=== PATIENT | male | born 1945 | race Caucasian/White ===

== ENCOUNTER 2023-09-10 04:08 | Inpatient (IN) | payer MEDICARE, SELFPAY ==
[2023-09-09 22:32] VITALS: BP 174/104
[2023-09-09 22:52] LABS: % Basophils 0.4 % (0-2); % Eosinophils 0.5 % (0-6); % Immature Granulocytes 0.8 % (0-0.5); % Lymphocytes 12.9 % (20.5-51.1); % Monocytes 7.3 % (1.7-9.3); % Neutrophils 78.1 % (42.2-75.2); Absolute Basophils 0.1 10^3/uL (0-0.2); Absolute Eosinophils 0.1 10^3/uL (0-0.7); Absolute Immature Granulocytes 0.1 10^3/uL (0-0.05); Absolute Lymphocytes 1.9 10^3/uL (1.2-3.4); Absolute Monocytes 1.1 10^3/uL (0.1-0.6); Absolute Neutrophils 11.4 10^3/uL (1.4-6.5); Hematocrit 27.2 % (39.0-52.0); Hemoglobin 8.9 g/dL (13.0-18.0); Mean Corp Hgb Conc. 32.7 g/dL (33.0-37.0); Mean Corpuscular Volume 67.3 fL (80.0-94.0); Nucleated Red Blood Cells % 0 % (-); Red Blood Cell Count 4.04 10^6/uL (4.70-6.10); Red Cell Dist. Width 18.5 % (11.5-14.5); White Blood Cell Count 14.6 10^3/uL (4.8-10.8)
[2023-09-09 23:05] LABS: Mean Platelet Volume 10.8 fL (7.4-10.4); Platelet Count 280 10^3/uL (130-400)
[2023-09-09 23:10] LABS: ALT (SGPT) 15 U/L (0-50); AST (SGOT) 25 U/L (17-59); Albumin 3.9 g/dl (3.5-5.0); Alkaline Phosphatase 90 U/L (38-126); Blood Urea Nitrogen 23 mg/dl (9-20); Calcium 8.8 mg/dl (8.4-10.2); Carbon Dioxide 24 mmol/L (22-30); Chloride 108 mmol/L (98-107); Glucose 108 mg/dl (70-99); Potassium 4.6 mmol/L (3.5-5.1); Sodium 136 mmol/L (135-145); Total Bilirubin 0.6 mg/dl (0.2-1.3); Total Protein 6.8 g/dl (6.3-8.2); eGFR > 60.00
[2023-09-09 23:13] LABS: NT-proBNP 8630 pg/ml; Troponin I 0.014 ng/ml
[2023-09-09 23:34] VITALS: BP 141/108
[2023-09-09 23:35] VITALS: BMI 36.6
[2023-09-09 23:36] VITALS: BP 141/108
[2023-09-10] VITALS (10 sets, daily range): BP systolic 110–161; BP diastolic 60–104; BMI 35.2
--- NOTE | 2023-09-10 01:54 | ED.GENMED ---
History of Present Illness
General
Chief Complaint: Breathing Problem
Source: patient and spouse
Exam Limitations: none
Time Seen by Provider: 09/09/23 23:36
Nursing documentation reviewed up to this point in time: agreed with
Travel History
Have you had any contact with someone who has COVID-19?: No
Do you have any symptoms of coronavirus? Fever > 100 degrees, chills, cough, shortness of breath, sore throat, loss of taste or smell, muscle aches, or headache?: No
History of Present Illness
History of Present Illness:
Patient presents to ED secondary to increasing shortness of breath over the past 2 days, which started at nighttime that woke him up from sleep. Denies chest pain. Denies fever or chills. Denies coughing. Denies nausea, vomiting, or diarrhea.
Denies recent illness. Denies recent change in medications or diet. Denies recent weight gain. Denies leg swelling or pain. Denies back pain. Denies recent travel or surgery. Denies previous history of similar symptoms. Patient states that he
feels presently short of breath, whether he is walking or sitting still. In addition, patient denies any blood with urination or with bowel movements.
Past History
Past History
ED Past Medical History: Other (Colon cancer, peptic ulcer disease, renal calculi)
ED Past Surgical History: Appendectomy, Cholecystectomy and Other (Colon resection, liver resection)
Social History
Tobacco: Non-smoker
Alcohol: None
Drug: None
Review of Systems
Review of Systems
Allergies reviewed?: Yes
Constitutional: Reports no symptoms
EENT: Reports no symptoms
Respiratory: Reports trouble breathing; Denies cough
Cardiac: Reports no symptoms; Denies chest pain
ABD/GI: Reports no symptoms
: Reports no symptoms
Musculoskeletal: Reports no symptoms
Skin: Reports no symptoms
Neurological: Reports no symptoms
Phy Exam
Physical Exam
Physical Exam:
Physical Exam
General: no apparent distress, not acutely ill. afebrile
Head: nc/at. eomi
Neck: supple. no meningeal signs.
Heart: s1/s2 regular rate and rhythm, no murmur. equal radial pulses.
Lungs: no acute respiratory distress. diminished breath sounds bilaterally
Abdomen: normal bowel sounds. not tender.
Neuro: alert and oriented. no focal neurological deficits
Skin: no rash
Psychiatric: well kept. interactive and cooperative
Extremities: LE b/l edema, nonpitting. no calf tenderness.
Scores
Heart Failure Risk
Heart Failure Risk Score: Yes
History of Stroke or TIA: No
History of intubation for respiratory distress: No
Heart rate on ED arrival >/= 110: No
SaO2 <90% on arrival on room air: No
HR >/=110 during 3min walk test (or too ill to perform test): No
ECG has acute ischemic changes: No
Urea >/=12mmol/L (BUN 33.6mg/dL): No
Serum CO2>/=35mmol/L: No
Troponin I or T elevated to FL Level (0.4mg/dL): No
NT-proBNP >/=5,000ng/L (5,000pg/ml): Yes
HF Risk Score: 1
Admission Status: MEDIUM RISK 5.1% Consider observation or discharge to home with homecare & f/u visit to PCP/Pharmacy Operations Coordinator, or SNF for treatment
Course
Orders/Labs/Results
Orders:
Orders
09/09/23 22:31
EKG [Electrocardiogram (*1)] Urgent
Reason for Study: Shortness of Breath
EKG- Treatment ONCE
09/09/23 22:36
CR Chest - 2 Views Urgent
Comment:
Reason For Exam: respiratory distress
09/09/23 22:46
Complete Blood Count/With Diff Urgent
Comprehensive Metabolic Panel Urgent
Ferritin Urgent
Comment: ADDED
Iron Urgent
Comment: ADDED
NT-proBNP Urgent
Total Iron Binding Urgent
Comment: ADDED
Troponin I Urgent
09/10/23 01:53
D-Dimer Urgent
09/10/23 02:26
Furosemide [Lasix] 20 mg IV NOW STA
09/10/23 02:39
COVID-19 Antigen Urgent
Source: Nasal Swab
09/10/23 03:07
Admit/Transfer Patient As Directed
Co-Sign Provider:
Level of Care: Inpatient admission
Assign to:: Telemetry
Physician / Group: dr fulton
Diagnosis: dyspnea/acute HF unknown type
Reason for Telemetry: Acute Heart Failure
Date to Stop Telemetry: 09/13/23
Time to Stop Telemetry: 11:00
Reason for Hospitalization: acute HF unknown type
trace amount heme pos brown stool
symptomatic ANDREZ
Expected length of stay greater than two midnights?: No
ELOS- Estimated Length of Stay in days: 3
I certify the patient meets the requirements for IP care: Yes
09/10/23 03:11
Code Status As Directed
Resuscitation Status: Full Code
09/10/23 03:22
Pantoprazole [Protonix IV] 80 mg IV NOW STA
09/10/23 04:50
Docusate W/Senna [Senokot-S] 1 tablet PO TID PRN
Oxycodone/Acetaminophen [Percocet 5/325] 1 tablet PO TIDPRN PRN
09/10/23 04:50
CARDIOLOGY CONSULT Routine
Consulting Provider: Xavier Mccullough
Was physician already notified: No
Reason for consult: new onset HF
Consult Gastroenterology [GASTROINTESTINAL CONSULT] Routine
Consulting Provider: Eugenia Garcia
Was physician already notified: No
Reason for consult: symptomatic anemia
Consult Notification Routine
Specialty to Notify: Cardiology
Date consulting provider notified: 09/10/23
Time consulting provider notified: 09:28
Notified:: Provider
Comment: TT'd On-Call Physician
Consult Notification Routine
Specialty to Notify: Gastroenterology
Date consulting provider notified: 09/10/23
Time consulting provider notified: 09:29
Notified:: Provider
Comment: TT'd on-call Physician
HF DIETARY CONSULT Routine
HF EDUCATOR CONSULT Routine
Comment:
Activity As Directed
Activity Level: With Assistance
Intake/ Output As Directed
Frequency: Per unit guidelines
Patient Education As Directed
Type: CHF folder
Comment: give on admission. Document in Interdisciplinary Education record
Pneumatic Compression Sleeves As Directed
Type: Knee high
Sleep Apnea Assessment by RN As Directed
Comment:
Physician Instructions:
Vital Signs As Directed
Frequency: Other
Additional Instructions:: Q12 or per unit guidelines if more frequent.
Weight As Directed
Frequency: Daily
Type of Scale: Standing Scale
Comment: Daily morning weight. If unable to stand, use balanced bed scale.
Weight As Directed
Frequency: Once
Type of Scale: Standing Scale
Comment: Upon Admission. If unable to stand, use balanced bed scale.
Pulse Ox/cont/shift [RESP] Routine
Quantity: 1
Special Instructions: Daily pulse oximetry at rest. If greater than 92% at rest also obtain pulse oximetry
while ambulating as tolerated.
DX Deep Vein Thrombosis Video Routine
09/10/23 05:16
Urinalysis Reflex To Culture Routine
Date Specimen was Collected: 09/10/23
Time Specimen was Collected: 05:15
09/10/23 06:00
Echo 2D MMode Color/Doppler IN AM
Reason for Study: heart failure
NPO
Allow oral meds: Yes
Allow clear liquids: Sips of Clears
NPO with Ice Chips: Yes
Pantoprazole 80 mg/100 ml Nss [Protonix] 80 mg in 100 ml IV Q10H
09/10/23 07:07
Type+Screen IN AM
Basic Metabolic Panel IN AM
CBC/With Diff [Complete Blood Count/With Diff] IN AM
09/10/23 08:00
Furosemide [Lasix] 40 mg IV ONCE ONE
Gabapentin [Neurontin] 600 mg PO TID
09/10/23 13:00
H&H Q6H
09/10/23 14:00
Ferric Gluconate [Ferrlecit] 125 mg 0.9% Sodium Chloride 100 ml [Nss] 100 ml IV DAILY@1400
09/10/23 18:00
H&H Q6H
09/11/23 00:00
H&H Q6H
09/11/23 06:00
Basic Metabolic Panel IN AM
09/12/23 06:00
Basic Metabolic Panel IN AM
09/13/23 11:00
DC Protocol for Telemetry ONCE
Abnormal Lab Results
09/09/23 09/10/23
22:46 01:53
WBC 14.6 H 10^3/uL
(4.8-10.8)
RBC 4.04 L 10^6/uL
(4.70-6.10)
Hgb 8.9 L g/dL
(13.0-18.0)
Hct 27.2 L %
(39.0-52.0)
MCV 67.3 L fL
(80.0-94.0)
MCH 22.0 L pg
(27.0-31.0)
MCHC 32.7 L g/dL
(33.0-37.0)
RDW 18.5 H %
(11.5-14.5)
MPV 10.8 H fL
(7.4-10.4)
Abs Immat Gran (auto) 0.1 H 10^3/uL
(0-0.05)
Absolute Neuts (auto) 11.4 H 10^3/uL
(1.4-6.5)
Absolute Monos (auto) 1.1 H 10^3/uL
(0.1-0.6)
Immature Gran % 0.8 H %
(0-0.5)
Neutrophils % 78.1 H %
(42.2-75.2)
Lymphocytes % 12.9 L %
(20.5-51.1)
D-Dimer 0.55 H ug/mlFEU
(0.00-0.50)
Chloride 108 H mmol/L
(98-107)
BUN 23 H mg/dl
(9-20)
Glucose 108 H mg/dl
(70-99)
Iron 21 L ug/dl
(49-181)
% Saturation 5 L %
(20-50)
Ferritin 10.3 L ng/ml
(17.9-464.0)
09/09/23 22:46
09/09/23 22:46
Vital Signs
Initial and Last Documented VS:
Initial Vital Signs
Temp Pulse Resp BP Pulse Ox
98.1 F 94 25 174/104 99
09/09/23 22:32 09/09/23 22:32 09/09/23 22:32 09/09/23 22:32 09/09/23 22:32
Last Documented Vital Signs
Temp Pulse Resp BP Pulse Ox
98.9 F 80 20 135/85 96
09/10/23 11:26 09/10/23 11:38 09/10/23 11:26 09/10/23 11:38 09/10/23 11:26
MDM/Problems Addressed
MDM/Problems Addressed:
History and exam along with blood work and chest x-ray concerning for potential new onset congestive heart failure. Patient will be admitted for further evaluation and treatment, including IV diuresis.
D-dimer noted, when adjusted for age, within normal limits.
*EKG
Interpreted by ED Provider?: Yes
EKG Intrepretation Date: 09/10/23
Heart Rate: 88
Rate: normal
Rhythm: sinus and PVC's
[place]: normal axis
Interval: normal interval
*Critical Care Note
Total Time (30-74mins, 75-104mins- exclusive of procedures): Not Applicable
ED Attending Note
-
Portions of this chart may have been created with voice recognition software.� Occasional wrong word or��sound alike� substitutions may have occurred due to the inherent limitations of voice recognition software.
Discharge Plan
Departure
Patient Disposition: Admit
Date of Disposition: 09/10/23
Time of Disposition: 02:28
Admit to: Telemetry
Presentation/result/management discussed w/ accepting MD/DO: Hospitalist
Discharge Problem:
Dyspnea
Interventions
Interventions:
*Risk Screen - Suicide Last Done: 09/10/23 05:20
*General Assessment Last Done: 09/09/23 22:32
*Neglect/Abuse Screening Last Done: 09/09/23 22:32
ED- Fall Risk Assessment Last Done: 09/09/23 23:39
*ED COVID-19 Vaccine History Last Done: 09/10/23 05:20
*Nursing Disposition Last Done: 09/10/23 04:28
ED- Cardiac Assessment Last Done: 09/09/23 23:39
ED- Pulmonary Assessment Last Done: 09/09/23 23:39
Discharge Date and Time
Discharge Date/Time: 09/10/23 04:42
[2023-09-10 01:57] LABS: Iron 21 ug/dl (49-181)
[2023-09-10 02:06] LABS: Percent Saturation 5 % (20-50); Total Iron Binding Capacity 419 ug/dl (261-462)
[2023-09-10 02:12] LABS: D-Dimer 0.55 ug/mlFEU (0.00-0.50)
[2023-09-10] MEDS: LASIX 20 MG IV (02:38)
[2023-09-10 02:46] LABS: Ferritin 10.3 ng/ml (17.9-464.0)
--- NOTE | 2023-09-10 02:57 | HPS.HSE ---
Family Physician
-
Family Physician: Eli Hillman PA-C
Chief Complaint
-
SoB
History of Present Illness
78M HX Colon CA , PUDz pw shortness of breath over the past 2 days, which started at nighttime that woke him up from sleep. Patient states that he feels presently short of breath, whether he is walking or sitting still.
In addition, patient denies any blood with urination or with bowel movements.
ROS
Denies chest pain.
Denies fever or chills.
Denies coughing.
Denies nausea, vomiting, or diarrhea.
Denies recent illness.
Denies recent weight gain.
Denies leg swelling or pain.
Denies back pain.
Denies recent travel or surgery.
Denies previous history of similar symptoms.
Medical History
Past Medical History
Past Medical History: Reports Other
Additional Past Medical History:
Colon cancer, peptic ulcer disease, renal calculi)
Past Surgical History: Reports Other
Additional Past Surgical History:
Appendectomy, Cholecystectomy and Other (Colon resection, liver resection)
Social History
Tobacco: Non-smoker
Alcohol: None
Drug: None
Family History
Family History: Not pertinent
Allergies / Home Medications
Allergies reflects when Allergies were last updated in [facility].
Home Medications with original date entered in [facility]
Allergy/Medication List:
Allergies
Allergy/AdvReac Type Severity Reaction Status Date / Time
Seasonal Allergy Sneezing, Uncoded 10/17/22 22:03
watery
eyes,
runny nose
Home Medications
gabapentin 300 mg capsule 900 mg PO TID 01/03/08
aspirin 81 mg tablet 81 mg PO DAILY 09/10/23
oxycodone-acetaminophen 10 mg-325 mg tablet 1 tab PO TID PRN breakthrough pain 09/10/23
sennosides 8.6 mg-docusate sodium 50 mg tablet 1 tab-cap PO TID PRN constipation 09/10/23
Review of Systems
-
Constitutional: Reports No Symptoms
EENT: Reports No Symptoms
Respiratory: Reports See HPI
Cardiac: Reports See HPI
Abdomen/GI: Reports No Symptoms
: Reports No Symptoms
Musculoskeletal: Reports No Symptoms
Skin: Reports No Symptoms
Neurological: Reports No Symptoms
Endocrine: Reports No Symptoms
Hematologic/Lymphatic: Reports No Symptoms
Psych: Reports No Symptoms
Physical Exam
Vital Signs
Vital Signs
Temp Pulse Resp BP Pulse Ox
99 F 91 18 155/104 99
09/10/23 02:15 09/10/23 02:12 09/10/23 02:15 09/10/23 02:12 09/10/23 02:12
Physical Exam
General: Other (see below )
Laboratory Results
-
09/09/23 22:46
09/09/23 22:46
Laboratory Results
Total Bilirubin 0.6 mg/dl (0.2-1.3) 09/09/23 22:46
AST 25 U/L (17-59) 09/09/23 22:46
ALT 15 U/L (0-50) 09/09/23 22:46
Alkaline Phosphatase 90 U/L (38-126) 09/09/23 22:46
Troponin I 0.014 ng/ml 09/09/23 22:46
Data Reviewed
-
Diagnostic Radiology: Other (pending report )
Lab Data: Labs Reviewed by me
Old Records: Reviewed
Impression/Plan
-
Reviewed VS: T 99 HR 90 BP 155/105 RR 18 POx 99
PE
Gen: no apparent distress
HEENT: anicteric
Neck: supple
Lungs: no acute respiratory distress. diminished breath sounds bilaterally
Cor: RRR S1 S2
Abdomen: soft abdomen
ANUPAM by ER: questionable trace HoB bown stool
NURSING CENTER TUTOR: AAO3 NFND
MS: no edema
Psych: interactive and cooperative
Data
WCC 14.6
Hgb 8.9 - Last Hgb was 14 in 2015
DD 0.55
Na 136
Cl 108
CO2 24
BUN 23
Cr 1.2
eGFR > 60
BG 108
Very low Ferritin 10.3 c/w Fe Def Anemia
NEG TPNI
proBNP 8600s
Pending Covid Ag
CXR pending final report
EKG
SINUS RHYTHM WITH FREQUENT , AND CONSECUTIVE PREMATURE VENTRICULAR COMPLEXES
POSSIBLE ANTERIOR INFARCT , AGE UNDETERMINED
ABNORMAL ECG
WHEN COMPARED WITH ECG OF 16-JUN-2011 08:32,
PREMATURE VENTRICULAR COMPLEXES ARE NOW PRESENT
Last hospitalist admission: no prior hospitalist admission
ASSESSMENT & PLAN
Progressive dyspnea
Suspect multifactorial origin: acute HF type unknown vs. high output HF due to symptomatic fe def anemia
- IV Lasix 40 x 1 at AM - then await Card evaluation
- daily Wt , IOs
- ECHO
- CBC Card consult
Questionable trace HoB POS brown stool GIB
Associated Fed def anemia
HX Colon CA
HX PUDx
- IV Fe Tx for 5days
- held ASA for now
- NPO except sips and PPI gtt
- H & H q8H
- T & S
- Blood consented and scanned
- GI consult
Leucocytosis - Infective vs. Reactive
- trend WCC
- f/u UA
- f/u Covid Ag
DVT Px: SCD
Code: Full
Ip TLM
[2023-09-10 03:10] LABS: COVID-19 Antigen Negative (Negative)
[2023-09-10] MEDS: PROTONIX IV 80 MG IV (03:48)
[2023-09-10 05:39] LABS: Urine Albumin Negative (Neg - Trace); Urine Bilirubin Negative (Negative); Urine Character Clear (Clear); Urine Color Straw; Urine Glucose Negative (Negative); Urine Ketone Negative (Negative); Urine Leukocyte Negative (Negative); Urine Nitrite Negative (Negative); Urine Occult Blood Negative (Negative); Urine Specific Gravity 1.005 (<1.030); Urine Urobilinogen Negative (Neg - 1+)
[2023-09-10] MEDS: PROTONIX 100 IV (06:00)
--- NOTE | 2023-09-10 06:25 | PTCARENOTE ---
Patient arrived from the ED via stretcher at approximately 0500. Patient ambulated from stretcher to bed x1 assist. Patient AAOx3, RAMONA, and forgetful @ times. VSS as documented. Assessment as documented. Patient oriented to room. Call kay within
reach. Bed in lowest position.
--- NOTE | 2023-09-10 07:56 | W.PN.UPDATE ---
Update Note
Progress Note Update
Patient seen and examined after post midnight admission. He reports that shortness of breath is improving. Denies chest pain.
161/100, 80, 20, 98.8 �F, 97% on room air
NAD, AAOx3, NCAT
RRR, normal S1/S2
CTAB
CN2-12 intact
no LE edema
CXR: Right basilar atelectasis/scarring.
proBNP 8360
Fe 21, ferritin 10.3, % sat 5
Hb 8.9
SOB:
-likely due to Fe def anemia and possibly acute CHF
-received 20mg IV lasix on admission, ordered 40mg IV for now, cards to see
-check echo
-with heme pos stool there is possibly acute blood loss anemia, GI to see, cont protonix gtt, trend Hb
[2023-09-10] MEDS: NEURONTIN 600 MG PO ×3 (08:24→21:36)
[2023-09-10] MEDS: LASIX 40 MG IV (08:28)
[2023-09-10 08:34] LABS: % Basophils 0.1 % (0-2); % Eosinophils 0.6 % (0-6); % Immature Granulocytes 0.5 % (0-0.5); % Lymphocytes 14.6 % (20.5-51.1); % Monocytes 6.7 % (1.7-9.3); % Neutrophils 77.5 % (42.2-75.2); Absolute Eosinophils 0.1 10^3/uL (0-0.7); Absolute Immature Granulocytes 0.1 10^3/uL (0-0.05); Absolute Monocytes 0.9 10^3/uL (0.1-0.6); Absolute Neutrophils 10.8 10^3/uL (1.4-6.5); Hematocrit 28.2 % (39.0-52.0); Hemoglobin 8.7 g/dL (13.0-18.0); Mean Corp Hgb Conc. 30.9 g/dL (33.0-37.0); Mean Corpuscular Hgb 21.9 pg (27.0-31.0); Mean Corpuscular Volume 70.9 fL (80.0-94.0); Mean Platelet Volume 11.3 fL (7.4-10.4); Nucleated Red Blood Cells % 0 % (-); Platelet Count 286 10^3/uL (130-400); Red Blood Cell Count 3.98 10^6/uL (4.70-6.10); Red Cell Dist. Width 18.3 % (11.5-14.5); White Blood Cell Count 13.9 10^3/uL (4.8-10.8)
[2023-09-10 08:46] LABS: Blood Urea Nitrogen 22 mg/dl (9-20); Calcium 8.9 mg/dl (8.4-10.2); Carbon Dioxide 25 mmol/L (22-30); Chloride 103 mmol/L (98-107); Estimated Creatinine Clearance 66 ml/min; Glucose 93 mg/dl (70-99); Sodium 138 mmol/L (135-145); eGFR > 60.00
--- NOTE | 2023-09-10 09:04 | CON.CAR ---
Addendum entered and electronically signed by Xavier Mccullough MD 09/10/23 16:11:
I saw and examined the patient.
The WINCH RUNNER's note was reviewed and I agree with the note.
Comment: 78 y/o pt with prior history of colon Ca s/p� colectomy and chemo approx 16 years ago, neuropathy, and chronic pain who presented with symptoms of PND and orthopnea. Interestingly, no cheng or wt gain. No swelling in the legs or abdominal
distenion. He has a lot of ectocpy on tele. CXR not with overwhelming HF but elevated probnp. Leukocytosis and anemia noted. On exam he has a ?elevated JVP, lungs clear, rrr with extra systolic. He is feeling a bit better with iron and lasix.
Suspect an element of CHF, agree with ongoing diuresis. ZACARIAS of anemia underway. BB started for ectopy as not severely volume overloaded.
will follow
Original Note:
Consultation
Consultation Request
Date/Time Consultation Requested: 09/10/2023 0800
Date/Time Consultation Performed: 09/10/2023 0830
Requesting Provider: Dr. Harrison
Performing Provider: Dr. Mccullough
Reason for Consultation: Possible CHF , SOB
Medical History
-
Chief Complaint: SOB
History of Present Illness:
78 y/o pt with prior history of colon Ca s/p colectomy and chemo approx 16 years ago, neuropathy, and chronic pain who presented with a few days of SOB. he describes primarily when going to bed at night. If he lays flat he needs to sit up b/c of
trouble breathing. He has needed to go out to the recliner to get comfortable. He denies CP, palps, edema, presyncope. He denies CHENG with activity. States normal walking and stairs does not reproduce symptoms. He denies melena or hematuria. BNP was
8630 he was given IV last overnight.
Past Medical History
Past Medical History: Other (colon Ca, neuropathy,PUD, renal calculi)
Past Surgical History: Appendectomy, Cholecystectomy and Other (Colon resection, liver resection)
Social History
Tobacco: Non-Smoker
Alcohol: Occasional
Personal:
Living: With Family
Employment: Retired
Family History
Family History: Reviewed & Not Pertinent
Allergies / Home Medications
Allergy/AdvReac Type Severity Reaction Status Date / Time
Seasonal Allergy Sneezing, Uncoded 10/17/22 22:03
watery
eyes,
runny nose
Medication Instructions Recorded Confirmed Type
gabapentin 300 mg capsule 900 mg PO TID 01/03/08 09/10/23 History
aspirin 81 mg tablet 81 mg PO DAILY 09/10/23 09/10/23 History
oxycodone-acetaminophen 10 mg-325 1 tab PO TID PRN breakthrough pain 09/10/23 09/10/23 History
mg tablet
sennosides 8.6 mg-docusate sodium 1 tab-cap PO TID PRN constipation 09/10/23 09/10/23 History
50 mg tablet
Review of Systems
-
Constitutional: No Symptoms
EENT: No Symptoms
Respiratory: Trouble Breathing
Cardiac: No Symptoms
Abdomen/GI: Constipated
Musculoskeletal: Other (neuropathy LE )
Neurological: No Symptoms
Physical Exam
Vital Signs
Temp Pulse Resp BP Pulse Ox
98.9 F 88 18 129/76 97
09/10/23 07:46 09/10/23 08:28 09/10/23 07:46 09/10/23 08:28 09/10/23 07:46
Lab Results
09/10/23 07:07
Troponin I 0.014 ng/ml 09/09/23 22:46
[id number] Pept 8630 pg/ml 09/09/23 22:46
Physical Exam
General: Well Developed, Well Nourished and No Apparent Distress
HEENT: Normocephalic and Moist Mucous Membranes
Respiratory: Clear
Cardiac: S1/S2 and Regular Rhythm (PVC's )
Breast: Deferred by me
GI: Soft, Non Tender and Normal Bowel Sounds
Rectal: Deferred by Provider
Musculoskeletal: No Clubbing, No Cyanosis and No Edema
Skin: Warm and Dry
Neuro: AO x 3
Psych: Calm
Impression / Plan
-
SOB:
-multifactorial- notes to have anemia on admit hgb 8.9
-BNP elevated 8630
-frequent PVC's on tele and EKG
Anemia:
-IV PPI
-follow up labs pending
-GI consulted
-asa held
Elevated BNP:
-IV lasix given
-CXR no significant effusions
-symptoms concerning for CHF
-update echo, monitor response to lasix
PVC's:
-frequent ectopy
-check Mg
-given elevated BP and ectopy start metoprolol
-check echo
Elevated BP:
-not know to have HTN per report- BP's high here
-start metoprolol with ectopy.
Data Reviewed
-
EKG: Tracing Personally Visualized and interpreted (NSR PVC's , couplets , 88 bpm. )
Radiology: Report Reviewed by me (CXR 09/09/23 R basilar atelectasis)
Medical Tests (Nuc Med, Echo etc): Report Reviewed by me (Lexiscan stress 2017 EF 40, no reversible defects, poss, prior inferior infarct) and Other (Echo 2017: EF 50-55, mild dilated LA, top nl aortic root 3.7, Asc Ao 3.8cm )
Labs: Labs Reviewed by me, Discussed with Physician, Discussed with Patient and Discussed with Family
Old Records: Reviewed
Critical Care Time (in minutes): OP PCP note 08/04/23, OP cardiology tests , notes 2017
[2023-09-10 09:47] LABS: Magnesium 2.1 mg/dl (1.6-2.3)
[2023-09-10] MEDS: LOPRESSOR 25 MG PO ×2 (11:38→19:51)
--- NOTE | 2023-09-10 12:16 | CON.GI ---
Addendum entered and electronically signed by Eugenia Garcia MD 09/10/23 15:01:
I saw and examined the patient.
The DOCUMENTATION IMPROVEMENT SPECIALIST or PA's note was reviewed and I agree with the note.
Comment: 78-year-old male past medical history of colon cancer status postresection and chemotherapy in 2005, Schatzki's ring, ulcer per patient although I did not see on prior endoscopic reports presenting with shortness of breath. This been going
on for 2 days. Denies any GI bleeding. Does have intermittent dysphagia once a week. Also has constipation which he attributes to his opioid use. Found on blood work to have hemoglobin 8.9 and iron studies consistent with iron deficiency anemia
and elevated BNP. Brown stool.
Most likely shortness of breath is multifactorial with likely heart failure, anemia.
Recommendations:
- cardiac work up
- OK to continue ASA 81 mg GI POV
- Miralax daily for constipation
- PPI BID
- IV Fe
- Will need eventual egd/cscope r/a/b discussed with pt and family at bedside, agreeable, timing pending clinical course inpatient vs outpatient
Original Note:
Consultation
-
Date/Time Consultation Requested: 09/10/23
Date/Time Consultation Performed: 09/10/23 @12:15
Requesting Provider: QUINTEN Walls
Performing Provider: QUINTEN Workman; Dr. Anni Garcia
Reason for Consultation: heme+stool, anemia
Medical History
Chief Complaint / HPI
Chief Complaint: shortness of breath
History of Present Illness:
The patient is a 78-year-old male with past medical history significant for colon cancer status post colon and liver resection and chemotherapy in 2005, peptic ulcer disease, kidney stones, chronic kidney disease stage III, GERD, anxiety, chronic
pain on narcotic, CAD, who presented to the emergency room with complaints of shortness of breath. We are being asked to evaluate for heme positive stool and anemia. The patient reports having several days of shortness of breath prior to
admission. He notes that even at rest he was experiencing dyspnea along with waking from sleep feeling as though he could not catch his breath. He denies any chest pain, lightheadedness, dizziness, or syncope. He denies any lower extremity edema
or swelling elsewhere. He denies any signs of bleeding such as melena, hematochezia, or hematemesis. He does note some mild abdominal discomfort intermittently in the middle of his abdomen but is unclear what triggers this. He notes he does take
Prevacid as needed for reflux but denies any significant reflux symptoms. He does have a history of dysphagia requiring esophageal dilation secondary to Schatzki ring in the past which was done most recently in [address] Ruvalcaba. He reports
infrequent episodes of dysphagia as long as he watches what he eats. He does also admit to intermittent constipation in which he take stool softeners for, likely secondary to chronic narcotic use for chronic back pain. He otherwise denies any
fevers, chills, unintentional weight loss, odynophagia, nausea, or vomiting. He denies a prior history of anemia. He denies any use of blood thinners aside from 81 mg of aspirin. He denies any significant NSAID use. He reports rare alcohol use.
Last colonoscopy was done in 2019 with removal of multiple polyps and patent end-to-end colocolonic anastomosis. Prior EGD as noted above, with also EGD in 2020 showing H. pylori. He admits to family history of colon cancer of his mother and
numerous second-degree relatives. Routine labs on admission showed WBC 14.6, hemoglobin 8.9, MCV 67.3, platelets 280,000, sodium 136, potassium 4.6, BUN 23, creatinine 1.2, serum iron 21, TIBC 419, iron saturation 5, ferritin 10.3, proBNP 8630,
troponin negative x 1. Chest x-ray was done which showed right basilar atelectasis versus scarring with no significant or convincing infiltrates. UA and COVID swab negative. He was started on IV Lasix pending cardiology evaluation. Per EMR,
digital rectal exam by ER physician showed brown possibly trace heme positive stool. EKG shows sinus rhythm with frequent PVCs and possible anterior infarct. IV iron was ordered and he was made n.p.o., placed on PPI drip, and admitted for
evaluation by GI.
Past Medical History
Past Medical History: CAD, Cancer (Colon cancer status post colon and liver resection with chemotherapy in 2005), GERD, HTN and Other (Chronic pain on narcotics, anxiety, peptic ulcer disease, kidney stones, CKD stage III)
Past Surgical History: Appendectomy, Bowel Resection, Cholecystectomy and Other (Liver resection, oral surgery)
Social History
Tobacco: Non-Smoker
Alcohol: Other (Rare)
Drug: None
Personal:
Living: With Family
Family History
Family History: Cancer (mother-colon cancer)
Allergies / Home Medications
Allergy/AdvReac Type Severity Reaction Status Date / Time
Seasonal Allergy Sneezing, Uncoded 10/17/22 22:03
watery
eyes,
runny nose
Medication Instructions Recorded
gabapentin 300 mg capsule 900 mg PO TID 01/03/08
aspirin 81 mg tablet 81 mg PO DAILY 09/10/23
oxycodone-acetaminophen 10 mg-325 1 tab PO TID PRN breakthrough pain 09/10/23
mg tablet
sennosides 8.6 mg-docusate sodium 1 tab-cap PO TID PRN constipation 09/10/23
50 mg tablet
Review of Systems
-
History Source: Patient
Constitutional: Reports Sleep Disturbance
EENT: Reports No Symptoms
Respiratory: Reports Trouble Breathing
Cardiac: Reports No Symptoms
Abdomen/GI: Reports Abdominal Pain (Intermittent) and Constipated (Intermittent)
: Reports No Symptoms
Musculoskeletal: Reports No Symptoms
Skin: Reports No Symptoms
Neurological: Reports No Symptoms
Vital Signs
Temp Pulse Resp BP Pulse Ox
98.9 F 80 20 135/85 96
09/10/23 11:26 09/10/23 11:38 09/10/23 11:26 09/10/23 11:38 09/10/23 11:26
Physical Exam
Exam
General: Well Developed, Well Nourished and No Apparent Distress
HEENT: Normocephalic, Anicteric and Atraumatic
Respiratory: Clear (Overall diminished with no signs of wheezing) and Non Labored Respirations
Cardiac: S1/S2 and Regular Rhythm
GI: Soft, Non Tender, Non Distended and Normal Bowel Sounds
Rectal: Other (Brown heme positive per ER record)
Musculoskeletal: No Edema
Skin: Warm and Dry
Neuro: Awake and Alert
Psych: Calm
Results
WBC 13.9 10^3/uL (4.8-10.8) H 09/10/23 07:07
Hgb 8.7 g/dL (13.0-18.0) L 09/10/23 07:07
Hct 28.2 % (39.0-52.0) L 09/10/23 07:07
MCV 70.9 fL (80.0-94.0) L 09/10/23 07:07
Plt Count 286 10^3/uL (130-400) 09/10/23 07:07
Absolute Neuts (auto) 10.8 10^3/uL (1.4-6.5) H 09/10/23 07:07
Sodium 138 mmol/L (135-145) 09/10/23 07:07
Potassium 4.0 mmol/L (3.5-5.1) 09/10/23 07:07
Chloride 103 mmol/L (98-107) 09/10/23 07:07
Carbon Dioxide 25 mmol/L (22-30) 09/10/23 07:07
BUN 22 mg/dl (9-20) H 09/10/23 07:07
Creatinine 1.2 mg/dL (0.7-1.3) 09/10/23 07:07
Calcium 8.9 mg/dl (8.4-10.2) 09/10/23 07:07
Total Bilirubin 0.6 mg/dl (0.2-1.3) 09/09/23 22:46
AST 25 U/L (17-59) 09/09/23 22:46
ALT 15 U/L (0-50) 09/09/23 22:46
Alkaline Phosphatase 90 U/L (38-126) 09/09/23 22:46
Prior GI Procedures:
12/10/2021 EGD, Dr. Ruvalcaba: Normal mucosa in the esophagus but torturous. Low-grade of narrowing and mild Schatzki ring dilated with 20 mm balloon. 4 cm hiatal hernia. Mild antral gastritis. Normal examined duodenum. Biopsies negative.
05/07/2020 colonoscopy, Dr. Ruvalcaba: Anal stricture found on. No exam. two 4-6mm polyps in the sigmoid colon removed with hot snare, one 8 mm polyp in the descending colon removed with hot snare, 110 mm polyp in the ascending colon removed with
piecemeal, diffuse 6 to 8 mm polyps in the transverse colon removed with hot snare, one 6 mm polyp in the descending colon biopsied. Melanosis in the colon. Patent end-to-end colocolonic anastomosis characterized by healthy-appearing mucosa.
Normal portion of the ileum examined. Polypectomies showing adenomatous polyps throughout the colon.
Assessment / Plan
-
The patient is a 78-year-old male with past medical history significant for colon cancer status post colon and liver resection and chemotherapy in 2005, peptic ulcer disease, kidney stones, chronic kidney disease stage III, GERD, anxiety, chronic
pain on narcotic, CAD, who presented to the emergency room with complaints of shortness of breath. We are being asked to evaluate for heme positive stool and anemia. He presented with several days of shortness of breath, awakening him from sleep.
He was found to have new onset anemia hgb 8.9 and concern for CHF. Currently undergoing cardiac evaluation. He was started on IV iron with evident iron deficiency and his hemoglobin has remained stable with no obvious signs of bleeding. In the ER
with brown but trace heme positive stool. Currently with improvement on IV Lasix
Problem list:
-Shortness of breath, ?CHF with elevated BNP
-Microcytic anemia, heme + brown stool
-Leukocytosis
-Elevated D-dimer
-Iron deficiency
-History of colon cancer status post colon resection and chemotherapy in 1999
-History of peptic ulcer disease and H. pylori in 2020
-Chronic intermittent constipation secondary to opioid
-CKD stage III
Other pertinent medical history:
-Kidney stones
-GERD
-Anxiety
-Chronic pain
-CAD
Recommendations:
-Etiology of anemia possibly secondary to GI source of blood loss with evident iron deficiency and history of colon cancer and peptic ulcer disease versus underlying hematologic disorder versus other.
-He will need eventual EGD and colonoscopy given his history and new onset anemia, inpatient versus outpatient pending clinical course.
-If he has no active signs of bleeding and his hemoglobin remains stable can likely be arranged to be done in the next few weeks outpatient pending his cardiac evaluation here.
-Agree with IV iron
-Monitor H&H and transfuse for hemoglobin less than 7
-Monitor stool output. I advised patient that if he has a bowel movement to notify the nurses so they can examine the color of this
-Continue PPI twice daily and stop PPI drip
-Okay for regular diet today
-Would ensure regular bowel movements with opioid use. Continue stool softeners can add MiraLAX as needed
-Okay to continue aspirin 81 mg daily from a GI standpoint
-Cardiology evaluation noted
-Will follow
-
-
Thank you for consultation and allowing me to participate in the patient's care. Please call the preparation room worker GI physician during the after hours with any questions or concerns.
[2023-09-10 13:05] LABS: Hematocrit 28.8 % (39.0-52.0); Hemoglobin 9.2 g/dL (13.0-18.0)
--- NOTE | 2023-09-10 14:51 | CM ---
CM following re: discharge planning.
Reviewed pt's chart, met with pt. Pt's spouse, son and daughter in law at bedside.
Pt is a 78 year old male, admitted with primary dx of Shortness of breath, ?CHF with elevated BNP. Microcytic anemia, heme + brown stool.
Pt reports he lives with spouse [employer], 2 steps to enter, has 3 supportive sons. 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 No DME, VN or SNF history.
PCP: Eli Hillman.
Pharmacy: [facility].
D/C plan: home with anticipated no nees. Family to transport at discharge.
CM will follow with discharge plan updates as hospitalization progresses
[2023-09-10] MEDS: FERRLECIT 110 MG IV (15:18)
[2023-09-10] MEDS: MIRALAX 17 GRAMS PO (15:19)
[2023-09-10] MEDS: FLUSH (NSS) 1 FLUSH IV (19:52)
[2023-09-10] MEDS: NSS (PRESERVATIVE FREE) 10 ML IV (19:52)
[2023-09-10] MEDS: PROTONIX IV 40 MG IV (19:52)
[2023-09-10 20:06] LABS: Hematocrit 28.3 % (39.0-52.0); Hemoglobin 8.9 g/dL (13.0-18.0)
[2023-09-11] VITALS (7 sets, daily range): BP systolic 116–134; BP diastolic 73–86
[2023-09-11 02:43] LABS: Hematocrit 28.9 % (39.0-52.0)
[2023-09-11 02:56] LABS: Blood Urea Nitrogen 33 mg/dl (9-20); Calcium 8.7 mg/dl (8.4-10.2); Carbon Dioxide 28 mmol/L (22-30); Chloride 105 mmol/L (98-107); Estimated Creatinine Clearance 57 ml/min; Glucose 104 mg/dl (70-99); Potassium 4.6 mmol/L (3.5-5.1); Sodium 136 mmol/L (135-145); eGFR 51.13
[2023-09-11] MEDS: LOPRESSOR 25 MG PO ×2 (08:40→19:51)
[2023-09-11] MEDS: NEURONTIN 600 MG PO ×3 (08:40→21:32)
[2023-09-11] MEDS: ASPIR LOW (ENTERIC COATED) 81 MG PO (08:40)
[2023-09-11] MEDS: PROTONIX IV 40 MG IV ×2 (08:41→19:52)
[2023-09-11] MEDS: MIRALAX 17 GRAMS PO (08:41)
[2023-09-11] MEDS: NSS (PRESERVATIVE FREE) 10 ML IV ×2 (08:41→19:52)
--- NOTE | 2023-09-11 10:33 | W.PN.GI.CBS2 ---
Today's Communication / Plan
-
cards work up, monitor hb
Assessment / Plan
-
�78-year-old male past medical history of colon cancer status postresection and chemotherapy in 2006, Schatzki's ring, ulcer per patient although I did not see on prior endoscopic reports presenting with shortness of breath.� This been going on for
2 days.� Denies any GI bleeding.� Does have intermittent dysphagia once a week.� Also has constipation which he attributes to his opioid use.� Found on blood work to have hemoglobin 8.9 and iron studies consistent with iron deficiency anemia and
elevated BNP.� Brown stool.
Most likely shortness of breath is multifactorial with likely heart failure, anemia.
Recommendations:
- cardiac work up ongoing - getting vignesh mcginnis tuesday
- OK to continue ASA 81 mg GI POV
- Miralax daily for constipation
- PPI BID
- IV Fe
- Will need eventual egd/cscope r/a/b discussed with pt and family at bedside, agreeable, timing pending clinical course inpatient vs outpatient
Subjective
Subjective
Date of Service: September 11, 2023
Brown stool, no complaints
Objective
Data Reviewed
Laboratory Data:
Laboratory Results
09/11/23 02:12
09/11/23 02:12
Laboratory Results
Magnesium 2.1 mg/dl (1.6-2.3) 09/10/23 07:07
Total Bilirubin 0.6 mg/dl (0.2-1.3) 09/09/23 22:46
AST 25 U/L (17-59) 09/09/23 22:46
ALT 15 U/L (0-50) 09/09/23 22:46
Alkaline Phosphatase 90 U/L (38-126) 09/09/23 22:46
Vital Signs and I&O:
Vital Signs
Temp Pulse Resp BP Pulse Ox
97.5 F 77 12 134/86 95
09/11/23 07:36 09/11/23 07:36 09/11/23 07:36 09/11/23 07:36 09/11/23 07:36
I&O
09/10/23 09/11/23 09/12/23
06:59 06:59 06:59
Intake Total 520 / 520
Output Total 800 / 800 120 / 120
Balance -800 / -800 400 / 400
Physical Exam
Physical Exam
GI: Non Distended and Non Tender
--- NOTE | 2023-09-11 14:10 | W.PN.HOSP.TC ---
Today's Communication/Plan
-
hold diuresis
Echo Tuesday
continue PPI and await timing of EGD/Colon per GI
Assessment / Plan
Assessment / Plan
Assessment:
SOB:
- multifactorial from CHF, Anemia
Iron deficiency anemia
- GI following for EGD/scope timing
- IV PPI
- hold ASA
Acute heart failure, unknown type
-s/p Lasix yesterday; d/w Cards and hold off Lasix today due to mild Creatinine increase
-CXR no significant effusions
-symptoms concerning for CHF but also mixed symptoms
-Tuesday
Leukocytosis
- check blood culture
- UA negative
- CXR negative
PVC
-frequent ectopy
-Mg normal
-given elevated BP and ectopy start metoprolol
-Tuesday
Elevated BP
-not know to have HTN per report- BP's high here
-continue metoprolol with ectopy.
DVT ppx: SCDs
Code: Full
Anticipated Discharge: 24 - 48 hours
Subjective/Interval History
-
Date of Service: September 11, 2023
no new complaints
received IV Lasix 40mg yesterday
Objective Data
-
Labs:
Laboratory Results
09/11/23
02:12
Hgb 9.0 L
Hct 28.9 L
Sodium 136
Potassium 4.6
Chloride 105
Carbon Dioxide 28
BUN 33 H
Creatinine 1.4 H
Glucose 104 H
Calcium 8.7
Vital Signs:
Vital Signs
Temp Pulse Resp BP Pulse Ox
97.8 F 65 14 116/74 97
09/11/23 11:41 09/11/23 11:41 09/11/23 11:41 09/11/23 11:41 09/11/23 11:41
I&O
09/10/23 09/11/23 09/12/23
06:59 06:59 06:59
Intake Total 520 / 520
Output Total 800 / 800 120 / 120
Balance -800 / -800 400 / 400
Physical Exam
-
General: No Apparent Distress
HEENT: Normocephalic and Atraumatic
Respiratory: Negative Wheezes
Cardiac: Regular Rhythm and S1/S2
GI: Soft
Genito-urinary: No Costovertebral Tender
Musculoskeletal: No Edema
Neuro: AO x 3
Hematologic / Lymphatic: No Lymphadenopathy
Psych: Calm
Data Reviewed
-
Total Time Spent with Patient (in minutes): 45
Labs: Labs Reviewed by me
--- NOTE | 2023-09-11 14:30 | W.PN.CD ---
Today's Communication / Plan
-
hold further lasix
continue bb
echo tomorrow
ok to proceed to GI evaluation
Impression / Plan
-
SOB:
-multifactorial- notes to have anemia on admit hgb 8.9, leukocytosis?
-BNP elevated 8630
-frequent PVC's on tele and EKG
Anemia:
-IV PPI
-follow up labs pending
-GI consulted, plan for egd/cscope
-he is stable to proceed will get the echo to aid in anesthesia, further cardiac evaluation would occur after GI eval.
-asa held
CHF:
-seems likely to be some component of his presentation
-he has diuresed well and cr did jump
-will hold off on further diuresis
-echo tomorrow
PVC's:
-frequent ectopy
-check Mg
-given elevated BP and ectopy start metoprolol
-check echo
HTN;
-improved with metoprolol and diuresis
holding further diuresis
Subjective:
he is feeling better orthopnea or pnd improved.
Physical Exam
Vital Signs/Labs
Vital Signs
Temp Pulse Resp BP Pulse Ox
97.8 F 65 14 116/74 97
09/11/23 11:41 09/11/23 11:41 09/11/23 11:41 09/11/23 11:41 09/11/23 11:41
09/10/23 09/11/23 09/12/23
06:59 06:59 06:59
Actual Weight 117.753 kg 116.8 kg
09/11/23 02:12
09/11/23 02:12
Magnesium 2.1 mg/dl (1.6-2.3) 09/10/23 07:07
09/09/23
22:46
Rwu-D-Bihyvcxxkin Pept 8630
LAB Results
09/09/23
22:46
Troponin I 0.014
Physical Exam
Constitutional: No acute distress
Cardiovascular: Rhythm & rate is regular, Pedal edema is absent, JVD pressure is normal and Systolic murmur absent
Respiratory: Respiratory effort normal, Lungs clear to auscul., Wheeze Absent, Crackles Absent and Rhonchi Absent
Neuro/Psych: AO x 3
Data Reviewed
-
Date of Service: September 11, 2023
EKG: Other (Sinus with pvcs)
Medical Tests (PFT, Pathology etc): Discussed with Patient (son and at the bedside, all involved in conversations about care plan echo and gi eval)
[2023-09-11] MEDS: FERRLECIT 110 MG IV (15:03)
[2023-09-11] MEDS: SENOKOT-S 1 TABLET PO (21:34)
[2023-09-12 03:00] VITALS: BP 138/85
[2023-09-12 04:08] VITALS: BMI 35.1
[2023-09-12 06:27] LABS: Hematocrit 28.3 % (39.0-52.0); Mean Corp Hgb Conc. 31.8 g/dL (33.0-37.0); Mean Platelet Volume 10.9 fL (7.4-10.4); Platelet Count 268 10^3/uL (130-400); Red Cell Dist. Width 18.3 % (11.5-14.5); White Blood Cell Count 13.1 10^3/uL (4.8-10.8)
[2023-09-12 07:02] LABS: Blood Urea Nitrogen 43 mg/dl (9-20); Calcium 8.5 mg/dl (8.4-10.2); Carbon Dioxide 24 mmol/L (22-30); Chloride 102 mmol/L (98-107); Estimated Creatinine Clearance 53 ml/min; Glucose 93 mg/dl (70-99); Potassium 4.4 mmol/L (3.5-5.1); Sodium 137 mmol/L (135-145); eGFR 47.06
[2023-09-12] MEDS: PROTONIX IV 40 MG IV (07:51)
[2023-09-12] MEDS: ASPIR LOW (ENTERIC COATED) 81 MG PO (07:51)
[2023-09-12] MEDS: MIRALAX 17 GRAMS PO (07:51)
[2023-09-12] MEDS: NEURONTIN 600 MG PO ×3 (07:51→21:54)
[2023-09-12] MEDS: NSS (PRESERVATIVE FREE) 10 ML IV (07:51)
[2023-09-12] MEDS: LOPRESSOR 25 MG PO ×2 (07:52→20:04)
[2023-09-12] MEDS: SENOKOT-S 1 TABLET PO ×2 (07:55→20:04)
[2023-09-12 08:02] VITALS: BP 141/93
--- NOTE | 2023-09-12 08:18 | W.PN.CD ---
Addendum entered and electronically signed by Haja Castillo MD 09/12/23 12:33:
I saw and examined the patient.
The DRIVEWAY SEALER's note was reviewed and I agree with the note.
Comfortable. Respiratory status is stable.
-Plan for echo to reassess left ventricular function.\\
-Evaluation and treatment of anemia as directed by GI and hospitalist
Original Note:
Today's Communication / Plan
-
continue Lopressor 25mg BID.
check echo today.
Impression / Plan
-
SOB: multifactorial.
- anemia on admit hgb 8.9, leukocytosis.
- BNP elevated 8630, diuresed.
- frequent PVC's on tele and EKG, asymptomatic.
Anemia: acute.
- IV PPI.
- GI consulted, plan for eventual EGD/Scope.
- check echo today, further cardiac evaluation would occur after GI evaluation.
CHF: acute on chronic systolic, EF 40% in 2017.
- improved s/p diuresis, though with elevated creatinine 1.5 today.
- hold off on further diuresis.
- check echo today.
PVC's: frequent.
- asymptomatic.
- now on Lopressor 25mg BID, continue.
- Mag and K are WNL.
- echo today.
HTN: chronic.
- improved with Lopressor and diuresis.
- monitor.
Subjective:
denies palpitations, chest pain or sob.
Physical Exam
Vital Signs/Labs
Vital Signs
Temp Pulse Resp BP Pulse Ox
98.3 F 68 18 141/93 96
09/12/23 08:02 09/12/23 08:02 09/12/23 08:02 09/12/23 08:02 09/12/23 08:02
09/11/23 09/12/23 09/13/23
06:59 06:59 06:59
Actual Weight 116.8 kg 117.299 kg
09/12/23 04:55
09/12/23 04:55
Magnesium 2.1 mg/dl (1.6-2.3) 09/10/23 07:07
09/09/23
22:46
Nnq-H-Biuhfknpyqg Pept 8630
LAB Results
09/09/23
22:46
Troponin I 0.014
Physical Exam
Constitutional: No acute distress
EENT: Anicteric and Moist mucous membranes
Cardiovascular: Rhythm & rate is regular
Respiratory: Respiratory effort normal and Lungs clear to auscul.
GI: Soft, Non tender and Normal bowel sounds
Neuro/Psych: AO x 3
Other: Skin (warm, dry)
Data Reviewed
-
Date of Service: September 12, 2023
Medical Decision Making: External Notes and Reviewed Test Results
EKG: Tracing Personally Visualized and interpreted
X-Ray/CT/US/MRI/NUC/PET: Report Reviewed by me
Labs: Labs Reviewed by me
Old Records: Reviewed
--- NOTE | 2023-09-12 08:22 | W.PN.HOSP.TC ---
Today's Communication/Plan
-
see bold
Assessment / Plan
Assessment / Plan
Gen: NAD, AAOx3.
Eyes: EOMI, PERRLA, no scleral icterus.
Neck: supple.
CV: RRR, +S1/S2, no m/r/g.
Resp: CTAB, no rales, wheezes, or rhonchi.
Abd: +BS, soft, NT, ND
Skin: No rashes. No LE edema
Neuro: CN 2-12 intact, non-focal.
Psych: Normal mood and affect.
SOB:
-multifactorial from CHF and anemia
Iron deficiency anemia:
-GI following for EGD/scope timing
-cont IV PPI
-cont IV Fe
Acute heart failure, unknown type:
-s/p Lasix which was stopped due to J CARLOS
-CXR: Right basilar atelectasis/scarring.
-symptoms concerning for CHF but also mixed symptoms
-Echo today
Leukocytosis:
-suspect reactive
-afebrile, U/A and CXR NEG
PVCs/frequent ectopy:
-Mg normal
-given elevated BP and ectopy, metoprolol started
-Echo today
Elevated BP:
-not known to have HTN per report
-BB started
FULL/SCDs
Anticipated Discharge: 24 - 48 hours
Subjective/Interval History
-
Date of Service: September 12, 2023
Denies chest pain or shortness of breath. Denies melena or hematochezia.
Objective Data
-
Labs:
Laboratory Results
09/12/23
04:55
WBC 13.1 H
Hgb 9.0 L
Hct 28.3 L
Plt Count 268
Sodium 137
Potassium 4.4
Chloride 102
Carbon Dioxide 24
BUN 43 H
Creatinine 1.5 H
Glucose 93
Calcium 8.5
Vital Signs:
Vital Signs
Temp Pulse Resp BP Pulse Ox
98.3 F 68 18 141/93 96
09/12/23 08:02 09/12/23 08:02 09/12/23 08:02 09/12/23 08:02 09/12/23 08:02
I&O
09/11/23 09/12/23 09/13/23
06:59 06:59 06:59
Intake Total 520 / 520 1020 / 1020
Output Total 120 / 120
Balance 400 / 400 1020 / 1020
[2023-09-12 11:03] VITALS: BP 139/83
--- NOTE | 2023-09-12 11:09 | W.PN.GI.CBS2 ---
Addendum entered and electronically signed by Eugenia Garcia MD 09/12/23 15:26:
I saw and examined the patient.
The SHARED SERVICES MANAGER or PA's note was reviewed and I agree with the note.
Comment: 78-year-old male past medical history of colon cancer status postresection and chemotherapy in 2005, Schatzki's ring, ulcer per patient although I did not see on prior endoscopic reports presenting with shortness of breath.� This been going
on for 2 days.� Denies any GI bleeding.� Does have intermittent dysphagia once a week.� Also has constipation which he attributes to his opioid use.� Found on blood work to have hemoglobin 8.9 and iron studies consistent with iron deficiency anemia
and elevated BNP.� Brown stool.
Most likely shortness of breath is multifactorial with likely heart failure, anemia.
Hb has been stable.
Recommendations:
- cardiac work up ongoing - getting vignesh mcginnis tuesday
- OK to continue ASA 81 mg GI POV
- Miralax daily for constipation
- PPI BID
- IV Fe
- Plan for outpatient egd/colon d/w pt and , agreeable
pt set up for appt with Cee 09/16 at 11:30 am, appt card given to pt
GI will sign off d/w Dr. Harrison call with ?s
Original Note:
Today's Communication / Plan
-
OP follow-up this Tuesday to set up EGD/colonoscopy. Continue BID PPI. Will sign off, call with ?s.
Assessment / Plan
-
The pt is a 78-year-old male past medical history of colon cancer status postresection and chemotherapy in 2005, Schatzki's ring, PUD per patient although I did not see on prior endoscopic reports presenting with shortness of breath.� This been
going on for 2 days.� Denies any GI bleeding.� Does have intermittent dysphagia once a week.� Also has constipation which he attributes to his opioid use.� Found on blood work to have hemoglobin 8.9 and iron studies consistent with iron deficiency
anemia and elevated BNP.� Brown stool. Most likely shortness of breath is multifactorial with likely heart failure, anemia.
Problem list:
-Shortness of breath, ?CHF with elevated BNP
-Microcytic anemia, heme + brown stool
-Leukocytosis
-Elevated D-dimer
-Iron deficiency
-History of colon cancer status post colon resection and chemotherapy in 1999
-History of peptic ulcer disease and H. pylori in 2019
-Chronic intermittent constipation secondary to opioid
-CKD stage III
Other pertinent medical history:
-Kidney stones
-GERD
-Anxiety
-Chronic pain
-CAD
Recommendations:
-Etiology of anemia possibly secondary to GI source of blood loss with evident iron deficiency and history of colon cancer and peptic ulcer disease versus underlying hematologic disorder versus other.
-Echo today, pending cardiac eval will need EGD/colonoscopy which can be down outpatient with no signs of bleeding actively and stable hgb.
-OK for ASA 81mg
-Continue MiraLax 1 capful daily and stool softener daily. He will needed extended prep for colonoscopy with hx fair prep and multiple polyps.
-I have arranged for him to see me in the office on Saturday 09/16 @ 11:30 am to arrange EGD/colon in the next few weeks.
-Repeat H/H in 1 week, will give slip at office visit
-Continue PPI BID for now with weekly episodes of dysphagia
-IV Fe given inpatient
-Cardiac clearance prior to EGD/colonoscopy pending Echo.
-No further GI recommendations. Will sign off. Please call back with ?s
Subjective
Subjective
Date of Service: September 12, 2023
The pt was seen and examined at the bedside. He denies any acute complaints. He is pending an Echo today. No signs of bleeding. No BM in 2 days. hgb is stable.
Objective
Data Reviewed
Laboratory Data:
Laboratory Results
09/12/23 04:55
09/12/23 04:55
Laboratory Results
Magnesium 2.1 mg/dl (1.6-2.3) 09/10/23 07:07
Total Bilirubin 0.6 mg/dl (0.2-1.3) 09/09/23 22:46
AST 25 U/L (17-59) 09/09/23 22:46
ALT 15 U/L (0-50) 09/09/23 22:46
Alkaline Phosphatase 90 U/L (38-126) 09/09/23 22:46
Vital Signs and I&O:
Vital Signs
Temp Pulse Resp BP Pulse Ox
98.3 F 68 18 141/93 96
09/12/23 08:02 09/12/23 08:02 09/12/23 08:02 09/12/23 08:02 09/12/23 08:02
I&O
09/11/23 09/12/23 09/13/23
06:59 06:59 06:59
Intake Total 520 / 520 1020 / 1020
Output Total 120 / 120
Balance 400 / 400 1020 / 1020
Physical Exam
Physical Exam
HEENT: Anicteric
Cardiology: S1 and S2 (regular rate/rhythm)
Pulmonary: Clear
GI: Soft, Non Distended and Normal Bowel Sounds
Extremities: No Edema
--- NOTE | 2023-09-12 14:35 | CARDSERVLU ---
Echocardiogram with Lumason completed after protocol screening completed. Allergies verified.
Patent IV site: __rt wirst___
IV site flushed with 0.9% NaCl pre and post administration.
Diluted bolus method utilized to enhance visualization of ventricular palencia.
Total volume given: ___3.0_ mL
Patient tolerated all procedures well without complications.
[2023-09-12] MEDS: FERRLECIT 110 MG IV (14:56)
[2023-09-12] MEDS: XANAX 0.5 MG PO (14:57)
[2023-09-12 15:37] VITALS: BP 142/77
--- NOTE | 2023-09-12 16:36 | CM ---
CHF, Anemia. GI workup as outpatient. Anticipate home with no needs.
[2023-09-12 19:41] VITALS: BP 134/77
[2023-09-12] MEDS: PROTONIX 40 MG PO (20:04)
[2023-09-12 23:27] VITALS: BP 116/76
[2023-09-13 03:15] VITALS: BMI 35.0
[2023-09-13 03:16] VITALS: BP 136/85
[2023-09-13 06:06] LABS: Blood Urea Nitrogen 40 mg/dl (9-20); Calcium 8.8 mg/dl (8.4-10.2); Carbon Dioxide 26 mmol/L (22-30); Chloride 104 mmol/L (98-107); Estimated Creatinine Clearance 61 ml/min; Glucose 97 mg/dl (70-99); Potassium 4.6 mmol/L (3.5-5.1); Sodium 137 mmol/L (135-145); eGFR 55.88
[2023-09-13 07:27] VITALS: BP 136/78
--- NOTE | 2023-09-13 08:10 | W.PN.HOSP.TC ---
Today's Communication/Plan
-
see bold
Assessment / Plan
Assessment / Plan
Gen: remains NAD, AAOx3.
Eyes: EOMI, PERRLA, no scleral icterus.
Neck: supple.
CV: remains RRR, +S1/S2, no m/r/g.
Resp: remains CTAB, no rales, wheezes, or rhonchi.
Abd: +BS, soft, NT, ND
Skin: No rashes. No LE edema
Neuro: CN 2-12 intact, non-focal.
Psych: Normal mood and affect.
Echo: Dilated cardiomyopathy.
�Left and right ventricular dilation with depressed systolic function.
�Left ventricular ejection fraction is 38% by volumetric assessment. Global
�hypokinesis.
�Stage II diastolic dysfunction suggestive of abnormal relaxation and increased
�filling pressures.
�No significant valvular disease.
SOB:
-multifactorial from CHF and anemia
Iron deficiency anemia:
-GI saw in c/s, will have outpt EGD/colon
-cont PPI
-cont IV Fe
Acute heart failure with reduced ejection fraction:
-s/p Lasix which was stopped due to J CARLOS
-CXR: Right basilar atelectasis/scarring.
-symptoms concerning for CHF but also mixed symptoms
-Echo as above, notable for EF 38%, G2DD
-case discussed with Dr. Barnett, stress test tomorrow
-cont Toprol XL
-start Jardiance
-no ACEi/ARB/Entresto due to renal function
Leukocytosis:
-suspect reactive
-afebrile, U/A and CXR NEG
PVCs/frequent ectopy:
-Mg normal
-given elevated BP and ectopy, metoprolol started
-Echo above
Elevated BP:
-not known to have HTN per report
-BB started
FULL/SCDs
Anticipated Discharge: Within 24 hours
Subjective/Interval History
-
Date of Service: September 13, 2023
No new complaints.
Objective Data
-
Labs:
Laboratory Results
09/13/23
04:56
Sodium 137
Potassium 4.6
Chloride 104
Carbon Dioxide 26
BUN 40 H
Creatinine 1.3
Glucose 97
Calcium 8.8
Vital Signs:
Vital Signs
Temp Pulse Resp BP Pulse Ox
98.3 F 66 16 136/78 97
09/13/23 07:27 09/13/23 07:27 09/13/23 07:27 09/13/23 07:27 09/13/23 07:27
I&O
09/12/23 09/13/23 09/14/23
06:59 06:59 06:59
Intake Total 1020 / 1020 720 / 720
Balance 1020 / 1020 720 / 720
[2023-09-13] MEDS: NEURONTIN 600 MG PO ×3 (08:11→20:38)
[2023-09-13] MEDS: LOPRESSOR 25 MG PO (08:11)
[2023-09-13] MEDS: PROTONIX 40 MG PO ×2 (08:11→20:38)
[2023-09-13] MEDS: ASPIR LOW (ENTERIC COATED) 81 MG PO (08:11)
[2023-09-13] MEDS: XANAX 0.5 MG PO (08:12)
[2023-09-13] MEDS: SENOKOT-S 1 TABLET PO ×2 (08:12→20:38)
[2023-09-13] MEDS: MIRALAX 17 GRAMS PO (08:12)
--- NOTE | 2023-09-13 08:46 | W.PN.CD ---
Today's Communication / Plan
-
-Creatinine has normalized with discontinuation of Lasix.
-Patient has instructed to use Lasix on an as-needed basis for weight gain of 3-5 pounds or shortness of breath at home.
-Will obtain a stress test tomorrow for ischemic evaluation; patient states that he did not know that he had CHF in 2017.
-Will make NPO after midnight.
-Will change from metoprolol to tartrate to metoprolol succinate 25 mg BID.
-Will start Jardiance 10 mg daily.
-Further GDMT limited by risk of renal dysfunction.
-GI consulted; plan for eventual EGD/Scope as outpatient.
-CHF education.
Impression / Plan
-
CHF acute on chronic systolic (EF 40% in 2017; currently 35-40%):
-Compensated on examination; Lasix discontinued due to creatinine increased to 1.5.
-Creatinine has normalized with discontinuation of Lasix.
-Patient has instructed to use Lasix on an as-needed basis for weight gain of 3-5 pounds or shortness of breath at home.
-Will obtain a stress test tomorrow for ischemic evaluation; patient states that he did not know that he had CHF in 2017.
-Will make NPO after midnight.
-Will change from metoprolol to tartrate to metoprolol succinate 25 mg BID.
-Will start Jardiance 10 mg daily.
-Further GDMT limited by risk of renal dysfunction.
-CHF education.
PVCs:
-Changing to Toprol-XL as above
-Denies palpitations.
-Stress test as above for ischemic evaluation.
Anemia: acute.
- IV PPI.
- GI consulted; plan for eventual EGD/Scope as outpatient.
HTN: chronic.
-Fairly controlled on current medications.
Subjective:
No major events overnight. Shortness of breath improved.
Physical Exam
Vital Signs/Labs
Vital Signs
Temp Pulse Resp BP Pulse Ox
98.3 F 66 16 136/78 97
09/13/23 07:27 09/13/23 07:27 09/13/23 07:27 09/13/23 07:27 09/13/23 07:27
09/12/23 09/13/23 09/14/23
06:59 06:59 06:59
Actual Weight 117.299 kg 117.027 kg
09/12/23 04:55
09/13/23 04:56
Magnesium 2.1 mg/dl (1.6-2.3) 09/10/23 07:07
09/09/23
22:46
Fdq-[id number]-Mzaxwgwuerh Pept 8630
Physical Exam
Constitutional: No acute distress and Comfortable
EENT: Anicteric
Cardiovascular: Rhythm & rate is regular, Pedal edema is absent, Systolic murmur absent and S1S2 is normal
Respiratory: Respiratory effort normal and Lungs clear to auscul.
GI: Soft
Neuro/Psych: AO x 3
Other: Skin (Warm, dry, intact)
Data Reviewed
-
Date of Service: September 13, 2023
EKG: Tracing Personally Visualized and interpreted (Telemetry: Sinus rhythm, frequent PVCs)
Echo: Tracing Personally Visualized and interpreted ( EF 38%)
Medical Tests (PFT, Pathology etc): Discussed with Physician (Primary Hospitalist) and Discussed with Nurse
Labs: Labs Reviewed by me
[2023-09-13] MEDS: JARDIANCE 10 MG PO (09:26)
--- NOTE | 2023-09-13 09:32 | PN.CDI ---
Addendum entered and electronically signed by Eren Harrison MD 09/13/23 12:20:
Documentation is complete
Original Note:
CDI
- -
CDI:
Physician Documentation Request
Admit Date: 09/10/23 04:08
Dear Doctor Hunter,
Please review the following and provide your response in the progress notes.
Clinical Indicators:
- 09/13 Cardiology 'CHF acute on chronic systolic...EF 40% in 2017; currently 35-40%'
- 'patient states that he did not know that he had CHF in 2017'
- 09/13 PN 'Acute heart failure with reduced ejection fraction'
Please provide further specificity regarding the most likely acuity of CHF you are evaluating, treating or monitoring.
Acute HFrEF
Acute on chronic HFrEF
Other
Use of terms such as suspected, likely, concern for, or probable (associated with a specific diagnosis that is being evaluated, monitored, or treated as if it exists) are acceptable and can be coded in the inpatient setting, when documented at the
time of discharge.
Thank you,
Chele Carrasco RN
CDI Specialist
Please use your independent medical judgment in providing your response.
[2023-09-13 11:00] VITALS: BP 110/65
--- NOTE | 2023-09-13 14:23 | CM ---
EF at 38%, for stress test tomorrow. PT evaluation when medical stability and patient able to participate. Patient for outpatient GI workup. Discharge plan of care TBD. Anticipate home with no needs.
[2023-09-13] MEDS: FERRLECIT 110 MG IV (14:30)
[2023-09-13 14:48] VITALS: BP 130/76
[2023-09-13 20:07] VITALS: BP 139/86
[2023-09-13] MEDS: TOPROL XL 25 MG PO (20:38)
[2023-09-13 23:46] VITALS: BP 121/81
[2023-09-14 03:38] VITALS: BP 136/81
--- NOTE | 2023-09-14 04:16 | DOWNTIME ---
There was a [employer] Faculty Member Downtime on 09/14/2023 from 0111 to 09/14/2023 at 0405. Downtime documentation of patient's care, including medication administrations, has been reconciled in the electronic record per guidelines. Refer to the
patient's paper chart under the miscellaneous tab to see printed paper medication records and downtime forms.
[2023-09-14 04:38] VITALS: BMI 34.9
[2023-09-14 05:26] LABS: Blood Urea Nitrogen 32 mg/dl (9-20); Calcium 8.5 mg/dl (8.4-10.2); Carbon Dioxide 25 mmol/L (22-30); Chloride 107 mmol/L (98-107); Estimated Creatinine Clearance 56 ml/min; Glucose 88 mg/dl (70-99); HDL Cholesterol 43 mg/dl; LDL Cholesterol, Calculated 70 mg/dl; Potassium 4.5 mmol/L (3.5-5.1); Sodium 137 mmol/L (135-145); Total Cholesterol 124 mg/dl (50-199); Triglyceride 59 mg/dl (10-149); Very Low Density Lipoprotein 11 mg/dl (0-30); eGFR 51.13
[2023-09-14 05:53] LABS: TSH 1.78 uIU/ml (0.47-4.68)
[2023-09-14 07:00] VITALS: BP 129/76
[2023-09-14] MEDS: NEURONTIN 600 MG PO (07:57)
[2023-09-14] MEDS: XANAX 0.5 MG PO (07:57)
[2023-09-14] MEDS: ASPIR LOW (ENTERIC COATED) 81 MG PO (07:57)
[2023-09-14] MEDS: PROTONIX 40 MG PO (07:57)
[2023-09-14] MEDS: SENOKOT-S 1 TABLET PO (07:57)
[2023-09-14] MEDS: TOPROL XL 25 MG PO ×2 (07:57→14:14)
[2023-09-14] MEDS: JARDIANCE 10 MG PO (07:57)
--- NOTE | 2023-09-14 07:57 | W.PN.HOSP.TC ---
Today's Communication/Plan
-
d/c
Assessment / Plan
Assessment / Plan
Gen: Continues to remain NAD, AAOx3.
Eyes: EOMI, PERRLA, no scleral icterus.
Neck: supple.
CV: Continues to remain RRR, +S1/S2, no m/r/g.
Resp: Continues to remain in CTAB, no rales, wheezes, or rhonchi.
Abd: +BS, soft, NT, ND
Skin: No rashes. No LE edema
Neuro: CN 2-12 intact, non-focal.
Psych: Normal mood and affect.
Echo: Dilated cardiomyopathy.
�Left and right ventricular dilation with depressed systolic function.
�Left ventricular ejection fraction is 38% by volumetric assessment. Global
�hypokinesis.
�Stage II diastolic dysfunction suggestive of abnormal relaxation and increased
�filling pressures.
�No significant valvular disease.
SOB:
-multifactorial from CHF and anemia
Iron deficiency anemia:
-GI saw in c/s, will have outpt EGD/colon
-cont PPI
-cont IV Fe
Acute heart failure with reduced ejection fraction:
-s/p Lasix which was stopped due to J CARLOS
-CXR: Right basilar atelectasis/scarring.
-symptoms concerning for CHF but also mixed symptoms
-Echo as above, notable for EF 38%, G2DD
-stress test today without stress-induced ischemia
-cont Toprol XL/Jardiance
-no ACEi/ARB/Entresto due to renal function
-On discharge Lasix will be as needed
-Case discussed with Dr. Barnett and the pt is medically cleared for discharge
Leukocytosis:
-suspect reactive
-afebrile, U/A and CXR NEG
PVCs/frequent ectopy:
-Mg normal
-given elevated BP and ectopy, metoprolol started
-Echo above
Elevated BP:
-not known to have HTN per report
-BB started
Patient's updated at bedside.
FULL/SCDs
Medically cleared for discharge. Case management aware.
Total time spent on d/c = 34 min. This included today's physical exam, progress note, review of laboratory and diagnostic data, preparation of discharge documents and prescriptions, and discussions about the pt's hospital course and discharge plan
with the patient and other medical administrative specialist involved in the patient's care.
Anticipated Discharge: Today
Subjective/Interval History
-
Date of Service: September 14, 2023
No new complaints.
Objective Data
-
Labs:
Laboratory Results
09/14/23
04:27
Sodium 137
Potassium 4.5
Chloride 107
Carbon Dioxide 25
BUN 32 H
Creatinine 1.4 H
Glucose 88
Calcium 8.5
Vital Signs:
Vital Signs
Temp Pulse Resp BP Pulse Ox
98.3 F 69 18 136/81 98
09/14/23 03:38 09/14/23 03:38 09/14/23 03:38 09/14/23 03:38 09/14/23 03:38
I&O
09/13/23 09/14/23 09/15/23
06:59 06:59 06:59
Intake Total 720 / 720 960 / 960
Balance 720 / 720 960 / 960
[2023-09-14] MEDS: MIRALAX PO (08:03)
[2023-09-14 08:59] LABS: Glycohemoglobin (HgbA1c) 5.5 % (4.0-5.6)
[2023-09-14] MEDS: LEXISCAN 0.400000000000000022 MG IV (09:55)
--- NOTE | 2023-09-14 10:16 | W.PN.CD ---
Today's Communication / Plan
-
-Stress test today for ischemic evaluation; patient states that he did not know that he had CHF in 2017.
-Changed from metoprolol to tartrate to metoprolol succinate 25 mg BID yesterday.
-Will place on metoprolol succinate 50 mg once daily for better compliance.
-Continue Jardiance 10 mg daily.
-CHF education today.
-Can discharge to home on Lasix 20 mg daily on an as-needed basis for weight gain of 3-5 pounds or shortness of breath at home.
Impression / Plan
-
CHF acute on chronic systolic (EF 40% in 2017; currently 35-40%):
-Compensated on examination; Lasix discontinued due to creatinine increased to 1.5.
-Can discharge to home on Lasix 20 mg daily on an as-needed basis for weight gain of 3-5 pounds or shortness of breath at home.
-Stress test today for ischemic evaluation; patient states that he did not know that he had CHF in 2017.
-Changed from metoprolol to tartrate to metoprolol succinate 25 mg BID yesterday.
-Will place on metoprolol succinate 50 mg once daily for better compliance.
-Continue Jardiance 10 mg daily.
-Further GDMT limited by risk of renal dysfunction.
-CHF education today.
PVCs:
-Continue Toprol-XL.
-Stress test as above for ischemic evaluation.
Anemia: acute.
- IV PPI.
- GI consulted; plan for eventual EGD/Scope as outpatient.
HTN: chronic.
-Fairly controlled on current medications.
Subjective:
No major cardiac events overnight. Intermittent episodes of shortness of breath, but improving overall.
Physical Exam
Vital Signs/Labs
Vital Signs
Temp Pulse Resp BP Pulse Ox
98.2 F 70 18 129/76 99
09/14/23 07:00 09/14/23 07:57 09/14/23 07:00 09/14/23 07:57 09/14/23 07:45
09/13/23 09/14/23 09/15/23
06:59 06:59 06:59
Actual Weight 117.027 kg 116.483 kg
09/12/23 04:55
09/14/23 04:27
Magnesium 2.1 mg/dl (1.6-2.3) 09/10/23 07:07
Triglycerides 59 mg/dl (10-149) 09/14/23 04:27
LDL Cholesterol, Calc 70 mg/dl 09/14/23 04:27
VLDL Cholesterol, Calc 11 mg/dl (0-30) 09/14/23 04:27
HDL Cholesterol 43 mg/dl 09/14/23 04:27
TSH 1.78 uIU/ml (0.47-4.68) 09/14/23 04:27
09/09/23
22:46
Txp-M-Zmsiswztsqh Pept 8630
Physical Exam
Constitutional: No acute distress and Comfortable
EENT: Anicteric
Cardiovascular: Rhythm & rate is regular, Pedal edema is absent, Systolic murmur absent and S1S2 is normal
Respiratory: Respiratory effort normal and Lungs clear to auscul.
GI: Soft
Neuro/Psych: AO x 3
Other: Skin (Warm, dry, intact)
Data Reviewed
-
Date of Service: September 14, 2023
EKG: Tracing Personally Visualized and interpreted (Telemetry: Sinus rhythm, PVCs)
Echo: Report Reviewed by me (EF 38%, no significant valvular disease.)
[2023-09-14] MEDS: AMINOPHYLLINE 75 MG IV (10:17)
--- NOTE | 2023-09-14 10:49 | PTCARENOTE ---
Report called to Tricia on , pt tolerated Lexiscan test well, refer to Cardiac Services Monitoring Record for details. . Patient under camera at present.
[2023-09-14 11:27] VITALS: BP 139/82
--- NOTE | 2023-09-14 13:54 | CM ---
Patient has been medically cleared for discharge to home with no additional skilled needs. will transport home.
--- NOTE | 2023-09-14 13:56 | W.DCSUMMARY ---
Discharge Summary
Discharge Data
Date of Admission: 09/10/23
Date of Discharge: 09/14/23
-
Pending Results: No
Hospital Course
Primary diagnoses:
Shortness of breath due to iron deficiency anemia and acute nonischemic heart failure with reduced ejection fraction
Acute kidney injury on chronic kidney disease stage IIIa likely due to cardiorenal syndrome
Secondary diagnoses:
Premature ventricular contractions/frequent ectopy
Leukocytosis, likely reactive
Elevated blood pressure
Obesity due to excess calories
Consultants:
Gastroenterology
Cardiology
Imaging:
CXR: Right basilar atelectasis/scarring.
Echo: Dilated cardiomyopathy.
�Left and right ventricular dilation with depressed systolic function.
�Left ventricular ejection fraction is 38% by volumetric assessment. Global
�hypokinesis.
�Stage II diastolic dysfunction suggestive of abnormal relaxation and increased
�filling pressures.
�No significant valvular disease.
78-year-old male who presented with chief complaint of shortness of breath as outlined in the H&P done on admission. Hospital course per problem list:
Shortness of breath due to iron deficiency anemia and acute nonischemic heart failure with reduced ejection fraction: Patient shortness of breath was multifactorial as previously stated. He was found to have iron deficiency anemia and seen in
consultation by gastroenterology. Due to his acute cardiac issues EGD and colonoscopy were deferred. He will need these in the outpatient setting and GI is arranged for follow-up. He was placed on proton pump inhibitor. He was given IV iron.
Regarding his acute nonischemic heart failure with reduced ejection fraction, patient had a stress test while hospitalized showing no stress-induced ischemia. Echocardiogram above and notable for EF 38% and G2DD. Patient did receive IV Lasix but
this was stopped with acute kidney injury. Patient was placed on Toprol-XL and Jardiance. He was given Lasix as needed on discharge. He was discharged in medically stable condition.
Discharge Plan
-
Patient Disposition: Home (Routine Discharge)
Discharge Diagnosis/Procedures: Shortness of breath due to iron deficiency anemia and acute nonischemic heart failure with reduced ejection fraction
Condition: Good
Diet: Other diet
Additional Diets: heart healthy, fluid restrict to 1200cc/day
Activity: As tolerated
Driving Restrictions: As prior to admission
Blood Work: BMP and CBC in 1 week, script from PCP
Specialty Instructions: Weigh Daily- Call MD for wt gain/loss 3 lbs overnight/5 lbs in 1 week
Instructions: *PCP/Other Mechanical Maintenance Instructor Heart Failure Instructions
Referrals:
Cee Dawson NP [Specified Professional Personl] - 09/16/23 11:30 am (Please call to reschedule if you can not keep this appointment. If your insurance requires a referral please contact your primary care physician prior to your appointment. )
Milly Waddell CRNP [Specified Professional Personl] - 09/21/23 2:20 pm
Eli Hillman PA-C [Family Provider] - in less than 1 week
Prescriptions:
New
polyethylene glycol 3350 [HealthyLax] 17 gram Powder In Packet
17 g PO DAILY Qty: 0 0RF
metoprolol succinate 50 mg Tablet Extended Release 24 Hr
50 mg PO DAILY Qty: 30 0RF
pantoprazole 40 mg Tablet,Delayed Release (Dr/Ec)
40 mg PO BID Qty: 60 0RF
Jardiance 10 mg Tablet
10 mg PO DAILY Qty: 30 0RF
furosemide [Lasix] 20 mg tablet
20 mg PO DAILYPRN PRN (Reason: Weight gain) Qty: 30 0RF
Rx Instructions:
for weight gain > 3lbs or SOB
Continued
gabapentin 300 MG capsule
900 mg PO TID
aspirin 81 mg Tablet
81 mg PO DAILY
sennosides-docusate sodium 8.6-50 mg Tablet
1 tab-cap PO TID PRN (Reason: constipation)
Rx Instructions:
take with percocet
alprazolam [Xanax] 0.5 mg Tablet
0.5 mg PO DAILY
Discontinued
oxycodone-acetaminophen 10-325 mg Tablet
1 tab PO TID PRN (Reason: breakthrough pain)
Discharge Orders:
Discharge Patient (As Directed); Ordered 09/14/23
Ordered By: Eren Harrison
[2023-09-14] MEDS: FERRLECIT 110 MG IV (14:14)
--- NOTE | 2023-09-14 14:53 | W.HF.CON ---
Heart Failure
- LV Function
Left ventricular function study result: LV Ejection fraction >35% - 40%
Ejection Fraction Percentage: 38
- ARNI
Patient already on ARNI: No
Heart Failure ARNI Contraindication: Acute Renal Failure
- ACEI/ARB
Patient already on ACEI/ARB: No
Heart Failure ACEI/ARB Contraindication: Acute Renal Failure
- Beta Oscar
Patient already on Evidence Based Beta Oscar: Yes
- Mineralocorticord Receptor Antagonist
Patient already on MRA: No
Heart Failure MRA Contraindication: Acute Renal Insufficiency
- SGLT-2 Inhibitor
Patient already on SGLT-2 Inhibitor: Yes
- NYHA CHF Classification
NYHA CHF Classification Level: Class III - Symptoms w/ min exertion, interferes w/ nml daily activity
- ACC/AHA Stage
ACC/AHA Stage: Stage C: Symptomatic Heart Failure
== END 2023-09-14 16:05 | disposition home or self-care (01) | DRG 811 ==
LOC: 2 NORTH 04:08
PROVIDERS: Emergency Medicine; Internal Medicine; Nurse Practitioner Family; ADMITTING PHYSICIAN Internal Medicine; ATTENDING PHYSICIAN Internal Medicine; CONSULT PHYSICIAN Internal Medicine Cardiovascular Disease; CONSULT PHYSICIAN Internal Medicine Gastroenterology; EMERGENCY PHYSICIAN Emergency Medicine; FAMILY PHYSICIAN Physician Assistant Medical
DX: D50.9 Iron deficiency anemia, unspecified (principal); I50.23 Acute on chronic systolic (congestive) heart failure; N17.9 Acute kidney failure, unspecified; I13.0 Hypertensive heart and chronic kidney disease with heart failure and stage 1 through stage 4 chronic kidney disease, or unspecified chronic kidney disease; I50.20 Unspecified systolic (congestive) heart failure; Z79.82 Long term (current) use of aspirin; I49.3 Ventricular premature depolarization; N18.31 Chronic kidney disease, stage 3a; E66.09 Other obesity due to excess calories; Z68.34 Body mass index [BMI] 34.0-34.9, adult; Z11.52 Encounter for screening for COVID-19
CPT/HCPCS: 71046; 78452; 80048; 80053; 80061; 81003; 82728; 83036; 83540; 83550; 83735; 83880; 84443; 84484; 85014; 85018; 85025; 85027; 85379; 86850; 86900; 86901; 87811; 93005; 93017; 93306; 96374; 99285; A9500; J2785; J2916; Q9950

== ENCOUNTER 2023-10-25 06:14 | Day surgery (SDC) | payer MEDICARE, SELFPAY ==
[2023-10-25 08:43] VITALS: BMI 36.3
[2023-10-25 08:44] VITALS: BP 162/85
[2023-10-25 09:03] LABS: Glucose - Point of Care 89 mg/dl (70-99)
[2023-10-25 10:36] VITALS: BP 143/75
[2023-10-25 10:45] VITALS: BP 156/86
[2023-10-25 10:57] VITALS: BP 152/86
== END 2023-10-25 11:25 | disposition home or self-care (01) ==
LOC: SDS 06:14
PROVIDERS: ATTENDING PHYSICIAN Internal Medicine Gastroenterology
DX: D12.0 Benign neoplasm of cecum (principal); D12.2 Benign neoplasm of ascending colon; D12.3 Benign neoplasm of transverse colon; D12.5 Benign neoplasm of sigmoid colon; K63.5 Polyp of colon; K63.89 Other specified diseases of intestine; D50.0 Iron deficiency anemia secondary to blood loss (chronic); K57.30 Diverticulosis of large intestine without perforation or abscess without bleeding; K64.0 First degree hemorrhoids; K29.70 Gastritis, unspecified, without bleeding; K20.90 Esophagitis, unspecified without bleeding; K22.89 Other specified disease of esophagus; K22.2 Esophageal obstruction; K44.9 Diaphragmatic hernia without obstruction or gangrene; R13.10 Dysphagia, unspecified; K31.89 Other diseases of stomach and duodenum
CPT/HCPCS: 45385; 45380; 43249; 43239; 88305; 88312; 82962; 88342; 93005; C1726

== ENCOUNTER 2024-06-01 06:25 | Day surgery (SDC) | payer MEDICARE, SELFPAY ==
[2024-06-01 09:20] VITALS: BMI 34.7
[2024-06-01 09:25] VITALS: BP 186/115
[2024-06-01 09:39] VITALS: BMI 34.7
[2024-06-01 10:55] VITALS: BP 112/82
[2024-06-01 11:00] VITALS: BP 133/67
[2024-06-01 11:16] VITALS: BP 153/81
[2024-06-01 11:30] VITALS: BP 138/88
== END 2024-06-01 11:39 | disposition home or self-care (01) ==
LOC: SDS 06:25
PROVIDERS: ATTENDING PHYSICIAN Internal Medicine Gastroenterology
DX: Z12.11 Encounter for screening for malignant neoplasm of colon (principal); D12.0 Benign neoplasm of cecum; D12.2 Benign neoplasm of ascending colon; D12.3 Benign neoplasm of transverse colon; K63.5 Polyp of colon; K63.89 Other specified diseases of intestine; K64.0 First degree hemorrhoids; Z86.0100 Personal history of colon polyps, unspecified
CPT/HCPCS: 45380; 88305

== ENCOUNTER → 2024-10-18 13:00 | Outpatient (REF) | payer MEDICARE, SELFPAY | LOC: RCS 13:00 | PROVIDERS: ATTENDING PHYSICIAN Internal Medicine Cardiovascular Disease; FAMILY PHYSICIAN Physician Assistant Medical | DX: I50.22 Chronic systolic (congestive) heart failure (principal) | CPT/HCPCS: 93306; Q9950 ==

== ENCOUNTER 2025-04-22 19:38 | Inpatient (IN) | payer MEDICARE, SELFPAY ==
[2025-04-22 10:00] VITALS: BP 125/87
[2025-04-22 10:19] LABS: Hematocrit 46.5 % (39.0-52.0); Hemoglobin 15.7 g/dL (13.0-18.0); Mean Corp Hgb Conc. 33.8 g/dL (33.0-37.0); Mean Corpuscular Volume 91.9 fL (80.0-94.0); Nucleated Red Blood Cells % 0 % (-); Platelet Count 153 10^3/uL (130-400); Red Cell Dist. Width 14.3 % (11.5-14.5)
[2025-04-22 10:34] LABS: ALT (SGPT) 11 U/L (0-50); AST (SGOT) 18 U/L (17-59); Albumin 4.1 g/dl (3.5-5.0); Alkaline Phosphatase 79 U/L (38-126); Blood Urea Nitrogen 33 mg/dl (9-20); Calcium 9.1 mg/dl (8.4-10.2); Carbon Dioxide 22 mmol/L (22-30); Chloride 107 mmol/L (98-107); Glucose 100 mg/dl (70-99); Lipase 23 U/L (23-300); Potassium 4.9 mmol/L (3.5-5.1); Sodium 138 mmol/L (135-145); Total Protein 7.1 g/dl (6.3-8.2); eGFR 22.12
[2025-04-22] MEDS: DILAUDID 1 MG IV ×2 (13:38→17:08)
[2025-04-22] MEDS: NSS 1000 IV ×3 (13:39→22:19)
[2025-04-22 14:00] LABS: Urine Character Clear (Clear)
[2025-04-22 14:21] LABS: Urine White Cell 0-2 /HPF (0-5)
--- NOTE | 2025-04-22 14:25 | ED.GENMED ---
History of Present Illness
<Guido Kingsley DO - Last Filed: 04/23/25 15:10>
General
Chief Complaint: Abdominal Symptoms
Time Seen by Provider: 04/22/25 13:04
<Merari Langford PA-C - Last Filed: 04/27/25 07:19>
General
Source: patient
Exam Limitations: none
Nursing documentation reviewed up to this point in time: agreed with
History of Present Illness
History of Present Illness:
see MDM
Past History
<Guido Kingsley DO - Last Filed: 04/23/25 15:10>
Past History
ED Past Medical History: Other (Colon cancer, peptic ulcer disease, renal calculi)
ED Past Surgical History: Appendectomy, Cholecystectomy and Other (Colon resection, liver resection)
Social History
Tobacco: Non-smoker
Alcohol: None
Drug: None
Review of Systems
<Merari Langford PA-C - Last Filed: 04/27/25 07:19>
Review of Systems
Allergies reviewed?: Yes
All Other Systems: Not applicable
Phy Exam
<RHIANNA Anaya Last Filed: 04/27/25 07:19>
Physical Exam
Physical Exam:
GENERAL: Alert , in no apparent distress
EYE: pupils equal and reactive
NECK: Supple
ENT: o/p clr, mmm.
CARDIAC: Regular rate and rhythm .
LUNGS: Clear breath sounds bilaterally, no acute respiratory distress, no wheezes/rales/rhonchi
ABDOMEN: Soft, moderate Llower quad tendenress, guarding, mild rebound, distended; L inguinal region no obvious hernia; , no cvat, hypoactive bowel sounds
gu: nontender scrotum/testicles; no masses palpated
NEUROLOGICAL: Alert and oriented, no focal neuro deficits
SKIN: Warm and dry, skin intact.
MUSCULOSKELETAL: No edema, well perfused. neg flo's sign
PSYCH: Normal and appropriate interaction.
Course
<Guido Kingsley, DO - Last Filed: 04/23/25 15:10>
Orders/Labs/Results
Orders:
Orders
04/22/25 10:04
Electrocardiogram (*1) Urgent
Reason for Study: Abdominal Pain
EKG- Treatment ONCE
04/22/25 10:08
Complete Blood Count/With Diff Urgent
Comprehensive Metabolic Panel Urgent
Lipase Urgent
04/22/25 13:30
0.9% Sodium Chloride 1000 ml [Nss] 1,000 ml IV BOLUS
HYDROmorphone [Dilaudid] 1 mg IV NOW STA
04/22/25 13:42
Lactic Acid Urgent
Urinalysis Reflex To Culture Urgent
Date Specimen was Collected: 04/22/25
Time Specimen was Collected: 13:41
Urine Microscopic Reflex Cult Urgent
04/22/25 14:08
CT Abd/pel (oral only)-[facility] Only Urgent
Comment:
Reason For Exam: pain
Iohexol [Omnipaque] See Protocol PO NOW STA
04/22/25 17:01
0.9% Sodium Chloride 1000 ml [Nss] 1,000 ml IV BOLUS
HYDROmorphone [Dilaudid] 1 mg IV NOW STA
04/22/25 17:57
UROLOGY CONSULT Urgent
Consulting Provider: [facility]
Was physician already notified: Yes
04/22/25 19:06
Admit/Transfer Patient As Directed
Co-Sign Provider:
Level of Care: Inpatient admission
Assign to:: Medical/Surgical
Physician / Group: jayla fulton
Diagnosis: obstructing calculus
Reason for Hospitalization: obstructing calculus
Expected length of stay greater than two midnights?: Yes
ELOS- Estimated Length of Stay in days: 3
I certify the patient meets the requirements for IP care: Yes
04/22/25 19:07
PRN Pain Medication Management As Directed
May give lesser potent ordered pain med per pt: Yes
preference::
Protocol:: Medication orders for pain may be administered in a
manner that supports deferring to patient preference
when the pt is:
- Requesting an ordered lesser potent pain medication.
Least to most potent pain medications are defined
as: acetaminophen < NSAID < tramadol < opioids
(morphine, oxycodone, hydromorphone).
- Requesting a lesser dose of the same medication IF
ORDERED.
- Requesting a less intrusive route of administration
if both routes are prescribed by the provider (PO <
IV).
04/22/25 19:08
Code Status As Directed
Resuscitation Status: Full Code
04/22/25 20:34
Acetaminophen [Tylenol] 650 mg PO Q4HPRN PRN
04/22/25 21:00
0.9% Sodium Chloride 1000 ml [Nss] 1,000 ml IV 65 mls/hr
Alprazolam [Xanax] 0.5 mg PO DAILYPRN PRN anxiety
Bisacodyl [Dulcolax] 10 mg RECTAL [id number] PRN
Docusate Sodium [Colace] 200 mg PO BID
Docusate W/Senna [Senokot-S] 1 tablet PO BIDPRN PRN
Gabapentin [Neurontin] 300 mg PO BID
HYDROmorphone [Dilaudid] 0.5 mg IV Q4HPRN PRN
Polyethylene Glycol Powder [Miralax] 17 grams PO DAILY
Polyethylene Glycol Powder [Miralax] 17 grams PO DAILYPRN PRN
oxycodone-acetaminophen [Percocet] 1 tablet PO BID
04/22/25 21:00
Activity As Directed
Activity Level: As Tolerated
Pneumatic Compression Sleeves As Directed
Type: Knee high
Strain Urine As Directed
Vital Signs As Directed
Frequency: Per unit guidelines
DX Deep Vein Thrombosis Video Routine
04/23/25 Breakfast
NPO
Allow oral meds: Yes
Allow clear liquids: No
04/23/25 06:08
Basic Metabolic Panel IN AM
Complete Blood Count/No Diff IN AM
04/23/25 08:00
Dapagliflozin [Farxiga] 10 mg PO DAILY
Metoprolol Xl [Toprol Xl] 50 mg PO DAILY
Pantoprazole [Protonix] 40 mg PO DAILY
04/24/25 06:42
Basic Metabolic Panel IN AM
Complete Blood Count/No Diff IN AM
04/25/25 07:13
Basic Metabolic Panel IN AM
Complete Blood Count/No Diff IN AM
Abnormal Lab Results
04/22/25 04/22/25
10:08 13:42
WBC 14.7 H 10^3/uL
(4.8-10.8)
MPV 11.8 H fL
(7.4-10.4)
Abs Immat Gran (auto) 0.1 H 10^3/uL
(0-0.05)
Absolute Neuts (auto) 11.3 H 10^3/uL
(1.4-6.5)
Absolute Monos (auto) 1.5 H 10^3/uL
(0.1-0.6)
Neutrophils % 76.9 H %
(42.2-75.2)
Lymphocytes % 11.9 L %
(20.5-51.1)
Monocytes % 10.0 H %
(1.7-9.3)
BUN 33 H mg/dl
(9-20)
Creatinine 2.8 H mg/dL
(0.7-1.3)
Glucose 100 H mg/dl
(70-99)
Total Bilirubin 2.7 H mg/dl
(0.2-1.3)
Urine Ketones 3+ A
(Negative)
Ur Occult Blood Reflex 1+ A
(Negative)
Urine RBC 3-6 A /HPF
(0-2)
Urine Bacteria (Reflex) Few A
(Negative)
Urine Glucose 4+ A
(Negative)
Urine Albumin (Reflex) 2+ A
(Neg - Trace)
04/22/25 10:08
04/22/25 10:08
Vital Signs
Initial and Last Documented VS:
Initial Vital Signs
Temp Pulse Resp BP Pulse Ox
37.1 C 78 16 125/87 98
04/22/25 10:00 04/22/25 10:00 04/22/25 10:00 04/22/25 10:00 04/22/25 10:00
Last Documented Vital Signs
Temp Pulse Resp BP Pulse Ox
36.6 C 78 18 152/96 96
04/25/25 13:10 04/25/25 12:13 04/25/25 07:25 04/25/25 12:13 04/25/25 12:13
Lionlt;Merari Langford PA-C - Last Filed: 04/27/25 07:19>
Orders/Labs/Results
Orders:
Orders
04/22/25 10:04
Electrocardiogram (*1) Urgent
Reason for Study: Abdominal Pain
EKG- Treatment ONCE
04/22/25 10:08
Complete Blood Count/With Diff Urgent
Comprehensive Metabolic Panel Urgent
Lipase Urgent
04/22/25 13:30
0.9% Sodium Chloride 1000 ml [Nss] 1,000 ml IV BOLUS
HYDROmorphone [Dilaudid] 1 mg IV NOW STA
04/22/25 13:42
Lactic Acid Urgent
Urinalysis Reflex To Culture Urgent
Date Specimen was Collected: 04/22/25
Time Specimen was Collected: 13:41
Urine Microscopic Reflex Cult Urgent
04/22/25 14:08
CT Abd/pel (oral only)-[facility] Only Urgent
Comment:
Reason For Exam: pain
Iohexol [Omnipaque] See Protocol PO NOW STA
04/22/25 17:01
0.9% Sodium Chloride 1000 ml [Nss] 1,000 ml IV BOLUS
HYDROmorphone [Dilaudid] 1 mg IV NOW STA
04/22/25 17:57
UROLOGY CONSULT Urgent
Consulting Provider: [facility]
Was physician already notified: Yes
04/22/25 19:06
Admit/Transfer Patient As Directed
Co-Sign Provider:
Level of Care: Inpatient admission
Assign to:: Medical/Surgical
Physician / Group: jayla fulton
Diagnosis: obstructing calculus
Reason for Hospitalization: obstructing calculus
Expected length of stay greater than two midnights?: Yes
ELOS- Estimated Length of Stay in days: 3
I certify the patient meets the requirements for IP care: Yes
04/22/25 19:07
PRN Pain Medication Management As Directed
May give lesser potent ordered pain med per pt: Yes
preference::
Protocol:: Medication orders for pain may be administered in a
manner that supports deferring to patient preference
when the pt is:
- Requesting an ordered lesser potent pain medication.
Least to most potent pain medications are defined
as: acetaminophen < NSAID < tramadol < opioids
(morphine, oxycodone, hydromorphone).
- Requesting a lesser dose of the same medication IF
ORDERED.
- Requesting a less intrusive route of administration
if both routes are prescribed by the provider (PO <
IV).
04/22/25 19:08
Code Status As Directed
Resuscitation Status: Full Code
04/22/25 20:34
Acetaminophen [Tylenol] 650 mg PO Q4HPRN PRN
04/22/25 21:00
0.9% Sodium Chloride 1000 ml [Nss] 1,000 ml IV 65 mls/hr
Alprazolam [Xanax] 0.5 mg PO DAILYPRN PRN anxiety
Bisacodyl [Dulcolax] 10 mg RECTAL [id number] PRN
Docusate Sodium [Colace] 200 mg PO BID
Docusate W/Senna [Senokot-S] 1 tablet PO BIDPRN PRN
Gabapentin [Neurontin] 300 mg PO BID
HYDROmorphone [Dilaudid] 0.5 mg IV Q4HPRN PRN
Polyethylene Glycol Powder [Miralax] 17 grams PO DAILY
Polyethylene Glycol Powder [Miralax] 17 grams PO DAILYPRN PRN
oxycodone-acetaminophen [Percocet] 1 tablet PO BID
04/22/25 21:00
Activity As Directed
Activity Level: As Tolerated
Pneumatic Compression Sleeves As Directed
Type: Knee high
Strain Urine As Directed
Vital Signs As Directed
Frequency: Per unit guidelines
DX Deep Vein Thrombosis Video Routine
04/23/25 Breakfast
NPO
Allow oral meds: Yes
Allow clear liquids: No
04/23/25 06:08
Basic Metabolic Panel IN AM
Complete Blood Count/No Diff IN AM
04/23/25 08:00
Dapagliflozin [Farxiga] 10 mg PO DAILY
Metoprolol Xl [Toprol Xl] 50 mg PO DAILY
Pantoprazole [Protonix] 40 mg PO DAILY
04/24/25 06:42
Basic Metabolic Panel IN AM
Complete Blood Count/No Diff IN AM
04/25/25 07:13
Basic Metabolic Panel IN AM
Complete Blood Count/No Diff IN AM
Abnormal Lab Results
04/22/25 04/22/25
10:08 13:42
WBC 14.7 H 10^3/uL
(4.8-10.8)
MPV 11.8 H fL
(7.4-10.4)
Abs Immat Gran (auto) 0.1 H 10^3/uL
(0-0.05)
Absolute Neuts (auto) 11.3 H 10^3/uL
(1.4-6.5)
Absolute Monos (auto) 1.5 H 10^3/uL
(0.1-0.6)
Neutrophils % 76.9 H %
(42.2-75.2)
Lymphocytes % 11.9 L %
(20.5-51.1)
Monocytes % 10.0 H %
(1.7-9.3)
BUN 33 H mg/dl
(9-20)
Creatinine 2.8 H mg/dL
(0.7-1.3)
Glucose 100 H mg/dl
(70-99)
Total Bilirubin 2.7 H mg/dl
(0.2-1.3)
Urine Ketones 3+ A
(Negative)
Ur Occult Blood Reflex 1+ A
(Negative)
Urine RBC 3-6 A /HPF
(0-2)
Urine Bacteria (Reflex) Few A
(Negative)
Urine Glucose 4+ A
(Negative)
Urine Albumin (Reflex) 2+ A
(Neg - Trace)
04/22/25 10:08
04/22/25 10:08
Vital Signs
Initial and Last Documented VS:
Initial Vital Signs
Temp Pulse Resp BP Pulse Ox
37.1 C 78 16 125/87 98
04/22/25 10:00 04/22/25 10:00 04/22/25 10:00 04/22/25 10:00 04/22/25 10:00
Last Documented Vital Signs
Temp Pulse Resp BP Pulse Ox
36.6 C 78 18 152/96 96
04/25/25 13:10 04/25/25 12:13 04/25/25 07:25 04/25/25 12:13 04/25/25 12:13
<Merari Langford PA-C - Last Filed: 04/27/25 07:19>
MDM/Problems Addressed
Differential Diagnosis Includes:
see MDM
MDM/Problems Addressed:
Note:
CHIEF COMPLAINT(S)
Abdominal pain and constipation
HISTORY OF PRESENT ILLNESS
The patient is an 79-year-old male w history of remote partial colon resection due to colon CA, metastatic to liver s/p chemo
presented with abdominal pain and constipation that began four days ago. He reports that the pain started suddenly when he rolled over and felt discomfort in his L testicle/scrotum that he thinks got caught underneath him. The pain was severe enough
to provoke nausea, and he vmoited. since, he has had LLQ abd pain. The patient describes the pain as persistent and unrelieved by oral medications he has taken. He mentioned that the pain is different from previous episodes of kidney stones he has
experienced. Since the onset of symptoms, the patient has had no bowel movements despite taking a stool softener and using a suppository, which did not produce any relief. He has refrained from eating due to his inability to have a bowel movement,
describing a cycle of discomfort that is exacerbated when he attempts to ingest food. Physical activity, such as walking, exacerbates the pain.
pt is on chronic perccocet for neuropathy and it is not helping
he tried fleet suppository which didn't help
PAST MEDICAL AND SURIGICAL HISTORY
The patient has a history of colon cancer, treated with a resection in 2005, which involved the removal of 10 to 12 inches of bowel and half of the liver due to metastasis. He underwent chemotherapy but no radiation therapy. He has a history of
kidney stones. He stated having his appendix removed in the past, and previously took medications for heart-related issues and neuropathy.
SOCIAL HISTORY
The patient does not smoke and has refrained from eating to avoid exacerbating his symptoms of constipation.
\\
PHYSICAL EXAM
- Nursing notes reviewed and vital signs reviewed.
- Abdominal examination revealed significant tenderness, especially in the left lower quadrant.
- A digital rectal examination identified an internal hemorrhoid but no stool was present for manual disimpaction.
PLAN
1. Administer pain management to alleviate the patients discomfort.
2. Order a computed tomography scan to evaluate for potential bowel perforation, hernia, or diverticulitis.
3. Obtain blood work to assess kidney function and other relevant metrics.
4. Monitor the patient closely for any changes in symptoms or status.
DIFFERENTIAL DIAGNOSIS
The Differential Diagnosis includes, in no particular order and is not limited to:
1. Bowel perforation
2. Hernia
3. Diverticulitis
4. Severe constipation with possible obstruction
5. Acute mesenteric ischemia
6. Renal colic
7. Acute appendicitis (uncommon due to prior appendectomy, but possible stump appendicitis)
8. Gastroenteritis
9. Pancreatitis
10. Peptic ulcer disease
79-year-old male with a history of a colon resection due to cancer remotely presents for pretty severe left lower quadrant pain, started suddenly after he actually accidentally rolled or sat on his scrotum which caused significant amount of pain.
Patient said he got nauseated and vomited once though he did not really bring much up. Subsequent to that the pain is a bit in the left lower quadrant or left flank. It does not feel similar to a kidney stone. Is constant and severe. He is not
being able to have a bowel movement. He also did not eat yesterday due to the pain. On exam the patient looks a little dry, uncomfortable, has moderate to severe left lower quadrant tenderness with mild guarding and mild rebound, the bumps in the
car hurt him on the way here. He has no fecal impaction on rectal exam. exam was also unremarkable. There is no obvious hernia.
Patient seen by ED attending. Dubberly okay to prep for CT with oral contrast given his acute renal injury. IV fluids, pain control
<Guido Kingsley DO - Last Filed: 04/23/25 15:10>
*Pulse Oximetry
SaO2: 98
Oxygen Mode of Delivery: Room air
<Merari Langford PA-C - Last Filed: 04/27/25 07:19>
*Pulse Oximetry
Patient hypoxic: no (98)
*Critical Care Note
Total Time (30-74mins, 75-104mins- exclusive of procedures): Not Applicable
<Guido Kingsley DO - Last Filed: 04/23/25 15:10>
Update Note
Update Note:
6 PM, update CT report noted looks like proximal ureteral stone
Afebrile white count 14.7 UA noted, will require admission for IV fluids, analgesia consideration for specialty consultation,
Message sent to hospitalist and urologist
ED Attending Note
<Guido Kingsley DO - Last Filed: 04/23/25 15:10>
ED Attending Note
Patient seen and examined by attending physician: Yes
I performed the substantive portion of visit, reviewed & personally made and approve the management plan that is documented in note by myself or LEONA.: Yes
ED Attending Note:
Seen with ANTHONY examined independently left lower abdominal pain, into his left testicle, history of bowel resection history of liver resection by Dr. Carlos jones noted, will prep with p.o. contrast only due to J CARLOS
-
Portions of this chart may have been created with voice recognition software.� Occasional wrong word or��sound alike� substitutions may have occurred due to the inherent limitations of voice recognition software.
Discharge Plan
Departure
Patient Disposition: Admit
Date of Disposition: 04/22/25
Time of Disposition: 17:55
Admit to: Med/Surg
Presentation/result/management discussed w/ accepting MD/DO: Hospitalist
Patient with high blood pressure during this ER visit?: Yes
Condition: Fair
Discharge Problem:
J CARLOS (acute kidney injury), Hydronephrosis with ureteral calculus
Interventions
Interventions:
*Risk Screen - Suicide Last Done: 04/22/25 10:00
*General Assessment Last Done: 04/22/25 17:03
*Neglect/Abuse Screening Last Done: 04/22/25 10:00
*ED- Fall Risk Assessment Last Done: 04/22/25 19:51
*ED COVID-19 Vaccine History Last Done: 04/22/25 21:00
*ED Influenza Vaccine History Last Done: 04/22/25 19:51
*Nursing Disposition Last Done: 04/22/25 20:52
EH-Crfxmx-Oazfqwskdi Assessment Last Done: 04/22/25 17:03
Discharge Date and Time
Discharge Date/Time: 04/22/25 20:55
[2025-04-22] MEDS: OMNIPAQUE 50 ML PO (14:28)
[2025-04-22 15:29] VITALS: BP 155/83
--- NOTE | 2025-04-22 18:36 | HPS.HSE ---
Family Physician
-
Family Physician: NOT KNOW UNKNOWN - PT DOES
Chief Complaint
-
right groin, testicle and lower abdominal pain
History of Present Illness
79-year-old male w history of remote partial colon resection due to colon CA, metastatic to liver s/p chemo, anxiety, neuropathy, CHF presented to us with left testicle/scrotum, groin pain and pain across the lower abdomen for past 4 days. Patient
denied dysuria hematuria. Taking oxycodone twice a day with no relief in his symptoms. Patient also stated constipated for past 4 days. He has not had a bowel movement for past 4 days. He has been taking stool softeners with no relief. Denied
fever, chills, chest pain, short of breath. Patient denied headache, dizzy or syncope.
With the impression of MODERATE ACUTE LEFT HYDROURETERONEPHROSIS secondary to a 5.7 mm obstructing calculus in the proximal left ureter.
Medical History
Past Medical History
Past Medical History: Reports Other
Additional Past Medical History:
Colon cancer, rotator cuff, neuropathy, chronic pain, opioid dependence, Schatzki ring, H. pylori, seasonal allergies, heart failure
Past Surgical History: Reports Other
Additional Past Surgical History:
Appendectomy, cholecystectomy with the liver resection, colon surgery
Social History
Tobacco: Non-smoker
Alcohol: None
Drug: None
Personal:
Living: With Family
Family History
Family History: Not pertinent
Allergies / Home Medications
Allergies reflects when Allergies were last updated in [employer].
Home Medications with original date entered in [employer]
Allergy/Medication List:
Allergies
Allergy/AdvReac Type Severity Reaction Status Date / Time
Seasonal Allergy Sneezing, Uncoded 06/01/24 09:23
watery
eyes,
runny nose
Home Medications
gabapentin 300 mg capsule 600 mg PO BID neuropathy 01/03/08
alprazolam 0.5 mg tablet (Xanax) 0.5 mg PO DAILYPRN PRN anxiety 09/12/23
empagliflozin 10 mg tablet (Jardiance) 10 mg PO DAILY #30 tabs 09/14/23
metoprolol succinate 50 mg tablet,extended release 24 hr 50 mg PO DAILY #30 tabs 09/14/23
oxycodone-acetaminophen 10 mg-325 mg tablet (Percocet) 1 tab PO BID 06/01/24
docusate sodium 100 mg capsule (Colace) 200 mg PO BID 04/22/25
pantoprazole 40 mg tablet,delayed release 40 mg PO DAILY 04/22/25
sacubitril 24 mg-valsartan 26 mg tablet (Entresto) 1 tab PO BID 04/22/25
Review of Systems
-
Constitutional: Reports No Symptoms
EENT: Reports No Symptoms
Respiratory: Reports No Symptoms
Cardiac: Reports No Symptoms
Abdomen/GI: Reports Other (Abdominal pain)
: Reports No Symptoms
Musculoskeletal: Reports No Symptoms
Skin: Reports No Symptoms
Neurological: Reports No Symptoms
Endocrine: Reports No Symptoms
Hematologic/Lymphatic: Reports No Symptoms
Psych: Reports No Symptoms
Physical Exam
Vital Signs
Vital Signs
Temp Pulse Resp BP Pulse Ox
98.8 F 67 18 155/83 97
04/22/25 10:00 04/22/25 15:29 04/22/25 15:29 04/22/25 15:29 04/22/25 15:29
Physical Exam
General: Well Developed, Well Nourished and No Apparent Distress
HEENT: NormoCephalic, Moist mucous membranes and Atraumatic
Respiratory: Clear
Cardiac: S1/S2 and Regular Rhythm; No Murmur or Rub
GI: Soft, Non Tender, Non Distended and Normal Bowel Sounds; No Organomegaly
Rectal: Deferred by Provider
Musculoskeletal: No Clubbing, No Cyanosis and No Edema
Skin: No Rash
Neuro: AO x 3 and Nonfocal/grossly intact
Psych: Calm
Laboratory Results
-
04/22/25 10:08
04/22/25 10:08
Laboratory Results
Lactic Acid 1.4 mmol/L (0.7-2.0) 04/22/25 13:42
Total Bilirubin 2.7 mg/dl (0.2-1.3) H 04/22/25 10:08
AST 18 U/L (17-59) 04/22/25 10:08
ALT 11 U/L (0-50) 04/22/25 10:08
Alkaline Phosphatase 79 U/L (38-126) 04/22/25 10:08
Lipase 23 U/L (23-300) 04/22/25 10:08
Data Reviewed
-
CT Scan: Report Reviewed by me
Lab Data: Labs Reviewed by me
Impression/Plan
-
# Left flank pain secondary to 5.7 obstructing calculus
- Keep patient n.p.o. after midnight
- Dilaudid, Oxy as needed for pain
-Strain urine
- Urology consulted
- WBCs 14.7
- CT with impression of 1. MODERATE ACUTE LEFT HYDROURETERONEPHROSIS secondary to a 5.7 mm obstructing calculus in the proximal left ureter.
2. Multiple bilateral nonobstructing intrarenal calculi.
3. Moderate chronic bilateral renal disease.
4. Moderate number of bilateral renal cysts.
5. Previous left hepatic lobectomy.
6. Moderate-sized paraesophageal hiatal hernia.
7. Mild small bowel distention most suggestive of ileus.
8. 8 cm segment of severe luminal narrowing in the sigmoid colon (possibly under distention of the colonic lumen).
9. Mild enlargement of the prostate gland.
10. Moderate elevation of the right hemidiaphragm.
#Acute kidney injury on CKD stage 2 likely secondary to hydroureteronephrosis
- Creatinine 2.8
- Monitor
-fluids continued
# History for CHF
-Not in acute exacerbation
-Hold Entresto due to J CARLOS
# Anxiety
-Xanax continued
# Neuropathy
-Gabapentin,oxy continued
# Essential hypertension
-Metoprolol continue with hold parameters
# History of colon cancer status post colectomy
# GERD
-PPI continued
#DVT prophylaxis
-scd
#CODE status
-full code
[2025-04-22 19:33] VITALS: BP 168/94
[2025-04-22 19:51] VITALS: BMI 36.2
--- NOTE | 2025-04-22 20:00 | W.PN.UPDATE ---
Update Note
Progress Note Update
This note serves as an addendum to the H&P by watershed engineer LEONA�
Chelle GENA�
HPI
79M remote HX partial colon resection due to colon CA, metastatic to liver s/p chemo,, neuropathy, CHF seen at ER - acute Lgroin and testicle/scrotum pain and across the lower abdomen for past 4 days.
- denied dysuria hematuria.
- no relief with oxycodone twice a day
- no BM for past 4 days took stool softeners with no relief.
ROS
denied fever, chills, chest pain, short of breath.
denied headache, dizzy or syncope.
CT shows MODERATE ACUTE LEFT HYDROURETERONEPHROSIS secondary to a 5.7 mm obstructing calculus in the proximal left ureter.
Relevant VS
Temp Pulse Resp BP Pulse Ox
98.5 F 95 18 168/94 95
04/22/25 19:33 04/22/25 19:33 04/22/25 19:33 04/22/25 19:33 04/22/25 19:33
PE
General: NAD , not toxic
HEENT:Moist OM
Respiratory: Clear
Cardiac: S1/S2, RRR
GI: Soft, Non Tender, Non Distended
MS: No Edema
Skin: No Rash
Neuro: AO x 3
Psych: Calm
Relevant Data
04/22/25 04/22/25
10:08 13:42
WBC 14.7 H
MPV 11.8 H
Abs Immat Gran (auto) 0.1 H
Absolute Neuts (auto) 11.3 H
Absolute Monos (auto) 1.5 H
Neutrophils % 76.9 H
Lymphocytes % 11.9 L
Monocytes % 10.0 H
BUN 33 H
Creatinine 2.8 H
Glucose 100 H
Total Bilirubin 2.7 H
Urine Ketones 3+ A
Ur Occult Blood Reflex 1+ A
Urine RBC 3-6 A
Urine Bacteria (Reflex) Few A
Urine Glucose 4+ A
Urine Albumin (Reflex) 2+ A
CT Abd/pel (oral only)-DH Only
1. MODERATE ACUTE LEFT HYDROURETERONEPHROSIS secondary to a 5.7 mm obstructing calculus in the proximal left ureter.
2. Multiple bilateral nonobstructing intrarenal calculi.
3. Moderate chronic bilateral renal disease.
4. Moderate number of bilateral renal cysts.
5. Previous left hepatic lobectomy.
6. Moderate-sized paraesophageal hiatal hernia.
7. Mild small bowel distention most suggestive of ileus.
8. 8 cm segment of severe luminal narrowing in the sigmoid colon (possibly under distention of the colonic lumen).
9. Mild enlargement of the prostate gland.
10. Moderate elevation of the right hemidiaphragm.
Last hospitalist admission:Date of Admission: 09/10/23 - Date of Discharge: 09/14/23
Primary diagnoses:
- Symptomatic iron deficiency anemia
- acute HFrEF
- J CARLOS on CKD3a due to cardiorenal syndrome
ASSESSMENT & PLAN
Acute ureterocolic due to 5.7 obstructing calculus complicated moderate acute L HN
UA looks OK but at risk for complicated UTI
- NPO and IVF
- PRN Dilaudid , PRN anti emetics
- Empiric IV CFTZ
- Urology consulted
J CARLOS @ Cr 2.8 due to obstructive nephropathy
HX CKD2
- IVF
- Trend Cr
- Observe Cr following uro procedure
Essential HTN
- on Metoprolol with hold parameters
HX CHF
- Not in acute exacerbation
- Hold Entresto due to J CARLOS
Anxiety
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
Neuropathy
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
HX colon cancer status post colectomy
Obesity due to excess calories
DVT Px: SCD
Code: Full code
IP MS
[2025-04-22] MEDS: STERILE WATER FOR INJECTION 10 ML IV (20:41)
[2025-04-22] MEDS: ROCEPHIN 1000 MG IV (20:41)
[2025-04-22] MEDS: TYLENOL 650 MG PO (20:42)
[2025-04-22 21:00] VITALS: BP 143/103; BMI 34.2
[2025-04-22] MEDS: COLACE 200 MG PO (22:12)
[2025-04-22] MEDS: TYLENOL PO (22:14)
[2025-04-22] MEDS: NEURONTIN 300 MG PO (22:15)
[2025-04-22] MEDS: ROXICODONE 10 MG PO (22:15)
[2025-04-22] MEDS: MIRALAX 17 GRAMS PO (22:16)
[2025-04-22 23:00] VITALS: BP 150/78
--- NOTE | 2025-04-22 23:14 | PTCARENOTE ---
patient arrived from ED via stretcher. Patient ambulated to bed independently.AAOx3 able to make needs known. patient oriented to room. call kay within reach.
[2025-04-23] VITALS (9 sets, daily range): BP systolic 108–141; BP diastolic 51–91
[2025-04-23] MEDS: DILAUDID 0.5 MG IV (05:33)
[2025-04-23 06:32] LABS: Hematocrit 42.3 % (39.0-52.0); Hemoglobin 14.4 g/dL (13.0-18.0); Mean Corp Hgb Conc. 34.0 g/dL (33.0-37.0); Mean Corpuscular Volume 91.8 fL (80.0-94.0); Platelet Count 113 10^3/uL (130-400); Red Cell Dist. Width 14.3 % (11.5-14.5)
[2025-04-23 06:48] LABS: Blood Urea Nitrogen 31 mg/dl (9-20); Calcium 8.2 mg/dl (8.4-10.2); Carbon Dioxide 19 mmol/L (22-30); Chloride 110 mmol/L (98-107); Estimated Creatinine Clearance 31 ml/min; Glucose 95 mg/dl (70-99); Potassium 4.6 mmol/L (3.5-5.1); Sodium 137 mmol/L (135-145); eGFR 25.34
[2025-04-23] MEDS: ROXICODONE 10 MG PO ×2 (07:49→20:16)
[2025-04-23] MEDS: PROTONIX 40 MG PO (07:49)
[2025-04-23] MEDS: TOPROL XL 50 MG PO (07:49)
[2025-04-23] MEDS: NEURONTIN 300 MG PO ×2 (07:50→20:17)
[2025-04-23] MEDS: FARXIGA 10 MG PO (07:50)
[2025-04-23] MEDS: COLACE 200 MG PO ×2 (07:50→20:16)
[2025-04-23] MEDS: TYLENOL 325 MG PO ×2 (07:50→20:16)
[2025-04-23] MEDS: MIRALAX 17 GRAMS PO (07:50)
--- NOTE | 2025-04-23 08:56 | CONS.URO ---
Consultation
-
Date/Time Consultation Performed: 04/23
Performing Provider: Peffer
Reason for Consultation: Stone
Medical History
History of Present Illness
79M history of remote partial colon resection due to colon CA, metastatic to liver s/p chemo, anxiety, neuropathy, CHF
Presented with left testicle/scrotum, groin pain and pain across the lower abdomen for 4 days.
Patient denied dysuria, hematuria.
Taking oxycodone twice a day with no relief
Patient also stated constipated for past 4 days with no BM. He has been taking stool softeners with no relief.
Denied fever, chills, chest pain, short of breath
Found on CT to have obstructing L proximal ureteral stone and b/l renal stones
Admitted for J CARLOS and constipation/ileus
Had one low grade fever overnight which since resolved
UA mildly positive
Had one prior episode of kidney stone which was passed spontaneously
Past Medical History
Past Medical History: Other (as above)
Allergies/Home Medications
Allergies
Allergy/AdvReac Type Severity Reaction Status Date / Time
Seasonal Allergy Sneezing, Uncoded 06/01/24 09:23
watery
eyes,
runny nose
Home Medications
�Medication �Instructions �Recorded �Confirmed �Type
gabapentin 300 mg capsule 600 mg PO BID neuropathy 01/03/08 04/22/25 History
alprazolam 0.5 mg tablet (Xanax) 0.5 mg PO DAILYPRN PRN anxiety 09/12/23 04/22/25 History
empagliflozin 10 mg tablet 10 mg PO DAILY #30 tabs 09/14/23 04/22/25 Rx
(Jardiance)
metoprolol succinate 50 mg 50 mg PO DAILY #30 tabs 09/14/23 04/22/25 Rx
tablet,extended release 24 hr
oxycodone-acetaminophen 10 mg-325 1 tab PO BID 06/01/24 04/22/25 History
mg tablet (Percocet)
docusate sodium 100 mg capsule 200 mg PO BID 04/22/25 04/22/25 History
(Colace)
pantoprazole 40 mg tablet,delayed 40 mg PO DAILY 04/22/25 04/22/25 History
release
sacubitril 24 mg-valsartan 26 mg 1 tab PO BID 04/22/25 04/22/25 History
tablet (Entresto)
Physical Exam
Vital Signs
Vital Signs
Temp Pulse Resp BP Pulse Ox
98.6 F 70 18 141/86 93
04/23/25 07:00 04/23/25 07:49 04/23/25 07:00 04/23/25 07:49 04/23/25 07:00
Lab / Testing Results
Laboratory Results
04/23/25 06:08
04/23/25 06:08
Physical Exam
General: Well Developed, Well Nourished and No Apparent Distress
GI: Soft and Non Tender
Genito-urinary: No Costovertebral Tend
Neuro: AO x 3
Psych: Calm and Intact Judgement
Assessment / Plan
-
79M with J CARLOS and obstructing L proximal ureteral stone, b/l renal stones
Low grade fever overnight raises concern for developing infection
- OR today for cystoscopy, left ureteral stent placement
- Continue ceftriaxone pending cultures
- Bowel regimen for constipation/ileus
--- NOTE | 2025-04-23 10:00 | W.SUR.PREOP ---
Pre-Operative Surgical Note
-
I have examined this patient prior to the performance of the scheduled procedure.
The patient's condition is unchanged from the time of the current History and
Physical and the patient is able to undergo the scheduled procedure.
--- NOTE | 2025-04-23 10:42 | CM ---
Chart reviewed
patient in OR
OR today for cystoscopy, left ureteral stent placement
CM to follow-up post op
--- NOTE | 2025-04-23 10:57 | W.IMMPOSTOP ---
Surgical Immed Post Op Note
-
Primary Surgeon:
gerson
Assisting Surgeon:
Pre-op Diagnosis:
obstructed left kidney due to stone/UTI
Post-op Diagnosis:
same
Procedure Performed:
cysto/left retrograde/stone manipulation/stent placement
Anesthesia Type:
gen
Specimen / Cultures:
none
Estimated Blood Loss:
2cc
Complications:
none
Operative Findings:
stent placed with large amount of high pressure purulent debris released from kidney
pt stable in pacu
start flomax and pyridium
diet per primary team given gi findings
await ucx- continue rocephin
[2025-04-23] MEDS: NSS 1000 IV (12:36)
[2025-04-23] MEDS: FLOMAX 0.4 MG PO (12:36)
--- NOTE | 2025-04-23 12:55 | W.PN.HOSP.TC ---
Today's Communication/Plan
-
Status post cystoscopy with stent placement
Continue to biotics pending cultures
Gentle hydration
Hold Entresto and Jardiance
Follow-up creatinine
Assessment / Plan
Assessment / Plan
Impression
Complicated UTI with infected stone.
J CARLOS.
Conditions prior to admission
Chronic CHF reduced EF.
Essential hypertension.
History of colon carcinoma with hepatic metastasis status post partial colon resection, liver lobectomy and chemotherapy 2005
Neuropathy pain
Anxiety.
GERD
CT of the abdomen pelvis:
1. MODERATE ACUTE LEFT HYDROURETERONEPHROSIS secondary to a 5.7 mm obstructing calculus in the proximal left ureter.
2. Multiple bilateral nonobstructing intrarenal calculi.
3. Moderate chronic bilateral renal disease.
4. Moderate number of bilateral renal cysts.
5. Previous left hepatic lobectomy.
6. Moderate-sized paraesophageal hiatal hernia.
7. Mild small bowel distention most suggestive of ileus.
8. 8 cm segment of severe luminal narrowing in the sigmoid colon (possibly under distention of the colonic lumen).
9. Mild enlargement of the prostate gland.
10. Moderate elevation of the right hemidiaphragm.
Plan
Complicated UTI with left hydro ureteral nephrosis secondary to obstructing calculus.
Status post cystoscopy with left stent placement, large amount of high-pressure purulent debris released from kidney on 04/23.
Continue antibiotics/ceftriaxone pending urine and blood cultures.
Outpatient urology follow-up for final future.
Initiated on Flomax
Acute kidney injury. Suspect in the settings of obstructive uropathy as well as Entresto
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
Creatinine on admission 2.8 improving down to 2.5 with IV hydration.
Continue IV hydration monitoring volume status closely.
Hold Entresto
Chronic CHF reduced EF (LVEF 35 to 40% 09/17)
Volume status compensated
Preadmission GDMT including Entresto, metoprolol, Jardiance. 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
Hold Entresto and Jardiance secondary to J CARLOS. Need to be off SGLT2 inhibitor until infection completely resolved.
Monitor volume status closely while on IV hydration.
Neuropathy
Chronic pain requiring opiates.
Continue preadmission regimen including oxycodone/acetaminophen/gabapentin per
Anxiety
Continuing Xanax
Full code
DVT prophylaxis mechanical. Off heparin secondary to postprocedure hematuria
Anticipated Discharge: 24 - 48 hours
Subjective/Interval History
-
Date of Service: April 23, 2025
Objective Data
-
Labs:
Laboratory Results
04/23/25
06:08
WBC 13.2 H
Hgb 14.4
Hct 42.3
Plt Count 113 L D
Sodium 137
Potassium 4.6
Chloride 110 H
Carbon Dioxide 19 L
BUN 31 H
Creatinine 2.5 H
Glucose 95
Calcium 8.2 L
Vital Signs:
Vital Signs
Temp Pulse Resp BP Pulse Ox
98.2 F 90 16 141/89 96
04/23/25 11:51 04/23/25 11:51 04/23/25 11:51 04/23/25 11:51 04/23/25 11:51
I&O
04/22/25 04/23/25 04/24/25
06:59 06:59 06:59
Output Total 100 / 100
Balance -100 / -100
Physical Exam
-
General: Well Developed and No Apparent Distress
HEENT: Normocephalic, Atraumatic and Moist Mucous Membranes
Respiratory: Clear to Auscultation
Cardiac: Regular Rhythm and S1/S2; Negative Murmur, Rub or Gallop
GI: Soft, Nontender, Nondistended and Normal Bowel Sounds; Negative Organomegaly
Rectal: Deferred by Provider
Musculoskeletal: No Clubbing, No Cyanosis and No Edema
Skin: Negative Rash
Neuro: Nonfocal/Grossly Intact
--- NOTE | 2025-04-23 18:04 | PTCARENOTE ---
Pt returned to unit post uretal stent placement. VSS. Pt having hematuria and passing clots, denies difficulty urinating or painful urination. Urology and MD made aware. Pt continues having hematuria. Pt has not had BM on this shift. PRN senokot
administered to pt. POC ongoing.
[2025-04-23] MEDS: SENOKOT-S 1 TABLET PO (18:06)
[2025-04-23] MEDS: STERILE WATER FOR INJECTION 10 ML IV (20:15)
[2025-04-23] MEDS: ROCEPHIN 1000 MG IV (20:16)
[2025-04-24] MEDS: NSS 1000 IV ×2 (06:16→23:30)
[2025-04-24 07:00] VITALS: BP 154/81
[2025-04-24 07:07] LABS: Hematocrit 41.2 % (39.0-52.0); Hemoglobin 13.7 g/dL (13.0-18.0); Mean Corp Hgb Conc. 33.3 g/dL (33.0-37.0); Mean Corpuscular Volume 91.6 fL (80.0-94.0); Platelet Count 121 10^3/uL (130-400); Red Cell Dist. Width 14.1 % (11.5-14.5)
[2025-04-24 07:23] LABS: Blood Urea Nitrogen 32 mg/dl (9-20); Calcium 8.5 mg/dl (8.4-10.2); Carbon Dioxide 18 mmol/L (22-30); Chloride 111 mmol/L (98-107); Estimated Creatinine Clearance 48 ml/min; Glucose 109 mg/dl (70-99); Potassium 4.8 mmol/L (3.5-5.1); Sodium 137 mmol/L (135-145); eGFR 43.29
--- NOTE | 2025-04-24 07:41 | W.PN.URO.CBU ---
Today's Communication / Plan
-
await ucx
trend cr level
Assessment / Plan
-
obstructing stone
suspected UTI
RADHA
pt doing well
labs normalizing
no sig bowel complaints
await ucx
when medically stable for discharge- would send home on flomax/pyridium and prn tramadol and schedule outpt f/u with dr nieto
Diagnosis
-
Date of Service: April 24, 2025
-
Patient Diagnosis:
obstructing left ureteral stone
? UTI
RADHA
Post Op Day:
left ureteral stent 04/23
Subjective
-
pt feels better
urine initially bloody- now clear
minimal voiding complaints
cr and wbc down
ucx pending
Objective
-
Vital Signs
Temp Pulse Resp BP Pulse Ox
98.7 F 73 16 110/66 94
04/23/25 23:24 04/23/25 23:24 04/23/25 23:24 04/23/25 23:24 04/23/25 23:24
Intake and Output
04/23/25 04/24/25 04/25/25
06:59 06:59 06:59
Intake Total 1250 / 1250
Output Total 100 / 100 350 / 350
Balance -100 / -100 900 / 900
Intake:
Oral fluids 500 / 500
IV fluids (Total) 750 / 750
Output:
Urine, Voided 100 / 100 350 / 350
Other:
Number of approximated SMALL 1
amounts of urine
Number of approximated MODERATE 6
amounts of urine
Laboratory Results
04/24/25 06:42
04/24/25 06:42
Review of Systems
-
Constitutional: Fatigue
Respiratory: No Symptoms
Cardiac: No Symptoms
Abdomen/GI: No Symptoms
: Frequency
Physical Exam
-
General - no acute distress
Abdomen - soft, non-tender
[2025-04-24] MEDS: PROTONIX 40 MG PO (08:41)
[2025-04-24] MEDS: NEURONTIN 300 MG PO ×2 (08:41→19:44)
[2025-04-24] MEDS: TOPROL XL 50 MG PO (08:41)
[2025-04-24] MEDS: TYLENOL 325 MG PO ×2 (08:41→19:44)
[2025-04-24] MEDS: FLOMAX 0.4 MG PO (08:41)
[2025-04-24] MEDS: ROXICODONE 10 MG PO ×2 (08:43→19:43)
[2025-04-24] MEDS: COLACE PO ×2 (08:44→19:46)
[2025-04-24] MEDS: MIRALAX PO (08:45)
--- NOTE | 2025-04-24 10:32 | CM ---
Patient seen at bedside
IA completed
Lives with in 1 story home with basement, [address]
PLOF: independent, reports does not use assistive device
DME: [employer]
Has had VN in past (does not recall agency), Denies Rehab
PCP: Eli Hillman
Pharmacy: [address], [place]
PLAN: Home, no needs anticipated, when stable, CM to continue to follow
--- NOTE | 2025-04-24 11:37 | W.PN.HOSP.TC ---
Today's Communication/Plan
-
monitor vitals
see plan
hold entresto for now
add hydralazine prn
monitor renal function
Assessment / Plan
Assessment / Plan
Impression
Complicated UTI with infected stone.
J CARLOS.
thrombocytopenia
Conditions prior to admission
Chronic CHF reduced EF.
Essential hypertension.
History of colon carcinoma with hepatic metastasis status post partial colon resection, liver lobectomy and chemotherapy 2005
Neuropathy pain
Anxiety.
GERD
CT of the abdomen pelvis:
1. MODERATE ACUTE LEFT HYDROURETERONEPHROSIS secondary to a 5.7 mm obstructing calculus in the proximal left ureter.
2. Multiple bilateral nonobstructing intrarenal calculi.
3. Moderate chronic bilateral renal disease.
4. Moderate number of bilateral renal cysts.
5. Previous left hepatic lobectomy.
6. Moderate-sized paraesophageal hiatal hernia.
7. Mild small bowel distention most suggestive of ileus.
8. 8 cm segment of severe luminal narrowing in the sigmoid colon (possibly under distention of the colonic lumen).
9. Mild enlargement of the prostate gland.
10. Moderate elevation of the right hemidiaphragm.
Plan
Complicated UTI with left hydro ureteral nephrosis secondary to obstructing calculus.
Status post cystoscopy with left stent placement, large amount of high-pressure purulent debris released from kidney on 04/23.
Continue antibiotics/ceftriaxone pending urine and blood cultures.
Outpatient urology follow-up
Initiated on Flomax
Acute kidney injury. Suspect in the settings of obstructive uropathy as well as Entresto
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
Creatinine on admission 2.8 improving down to 2.5 with IV hydration.
Continue IV hydration monitoring volume status closely.
Hold Entresto for now
Chronic CHF reduced EF (LVEF 35 to 40% 09/17)
Volume status compensated
Preadmission GDMT including Entresto, metoprolol, Jardiance. 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
Hold Entresto and Jardiance secondary to J CARLOS. Need to be off SGLT2 inhibitor until infection completely resolved.
Monitor volume status closely while on IV hydration.
hydralazine prn for HTN
Neuropathy
Chronic pain requiring opiates.
Continue preadmission regimen including oxycodone/acetaminophen/gabapentin per
Anxiety
Continuing Xanax
Full code
DVT prophylaxis mechanical. Off heparin secondary to postprocedure hematuria
General: Well Developed and No Apparent Distress
HEENT: Normocephalic, Atraumatic and Moist Mucous Membranes
Respiratory: Clear to Auscultation
Cardiac: Regular Rhythm and S1/S2; Negative Murmur, Rub or Gallop
GI: Soft, Nontender, Nondistended and Normal Bowel Sounds
Musculoskeletal: No Edema
Neuro: Nonfocal/Grossly Intact
Anticipated Discharge: Within 24 hours
Subjective/Interval History
-
Date of Service: April 24, 2025
denies nausea
Objective Data
-
Labs:
Laboratory Results
04/24/25
06:42
WBC 10.8
Hgb 13.7
Hct 41.2
Plt Count 121 L
Sodium 137
Potassium 4.8
Chloride 111 H
Carbon Dioxide 18 L
BUN 32 H
Creatinine 1.6 H
Glucose 109 H
Calcium 8.5
Vital Signs:
Vital Signs
Temp Pulse Resp BP Pulse Ox
97.3 F 73 18 154/81 95
04/24/25 07:00 04/24/25 08:41 04/24/25 07:00 04/24/25 08:41 04/24/25 10:01
I&O
04/23/25 04/24/25 04/25/25
06:59 06:59 06:59
Intake Total 1250 / 1250
Output Total 100 / 100 350 / 350
Balance -100 / -100 900 / 900
[2025-04-24 15:00] VITALS: BP 130/72
[2025-04-24 16:43] VITALS: BP 130/72; PULSE 70
[2025-04-24] MEDS: SENOKOT-S 1 TABLET PO (17:00)
[2025-04-24] MEDS: STERILE WATER FOR INJECTION 10 ML IV (19:43)
[2025-04-24] MEDS: ROCEPHIN 1000 MG IV (19:44)
[2025-04-24 23:00] VITALS: BP 151/80
[2025-04-25 07:25] VITALS: BP 149/92
[2025-04-25 07:41] LABS: Hematocrit 42.5 % (39.0-52.0); Hemoglobin 14.2 g/dL (13.0-18.0); Mean Corp Hgb Conc. 33.4 g/dL (33.0-37.0); Mean Corpuscular Volume 92.0 fL (80.0-94.0); Platelet Count 145 10^3/uL (130-400); Red Cell Dist. Width 14.2 % (11.5-14.5)
[2025-04-25 07:58] LABS: Blood Urea Nitrogen 28 mg/dl (9-20); Calcium 8.7 mg/dl (8.4-10.2); Carbon Dioxide 22 mmol/L (22-30); Chloride 112 mmol/L (98-107); Estimated Creatinine Clearance 55 ml/min; Glucose 83 mg/dl (70-99); Potassium 4.3 mmol/L (3.5-5.1); Sodium 141 mmol/L (135-145); eGFR 50.81
[2025-04-25] MEDS: PROTONIX 40 MG PO (07:59)
[2025-04-25] MEDS: NEURONTIN 300 MG PO (07:59)
[2025-04-25] MEDS: TOPROL XL 50 MG PO (07:59)
[2025-04-25] MEDS: FLOMAX 0.4 MG PO (08:00)
[2025-04-25] MEDS: ROXICODONE 10 MG PO (08:00)
[2025-04-25] MEDS: TYLENOL 325 MG PO (08:00)
[2025-04-25] MEDS: MIRALAX PO (08:06)
[2025-04-25] MEDS: COLACE PO (08:06)
--- NOTE | 2025-04-25 11:00 | W.PN.HOSP.TC ---
Addendum entered and electronically signed by Tk Murrieta MD 04/25/25 12:17:
Discussed with Dr. Reinoso from urology, okay to discharge on p.o. cefdinir. Patient will follow-up with Dr. Bang outpatient
Time of discharge 38 minutes
Original Note:
Today's Communication/Plan
-
Monitor vitals
See plan
Urology following
Hopeful discharge today
Restart Entresto
Switch antibiotic to cefdinir
Assessment / Plan
Assessment / Plan
Impression
Complicated UTI with infected stone.
J CARLOS.
thrombocytopenia
Conditions prior to admission
Chronic CHF reduced EF.
Essential hypertension.
History of colon carcinoma with hepatic metastasis status post partial colon resection, liver lobectomy and chemotherapy 2005
Neuropathy pain
Anxiety.
GERD
CT of the abdomen pelvis:
1. MODERATE ACUTE LEFT HYDROURETERONEPHROSIS secondary to a 5.7 mm obstructing calculus in the proximal left ureter.
2. Multiple bilateral nonobstructing intrarenal calculi.
3. Moderate chronic bilateral renal disease.
4. Moderate number of bilateral renal cysts.
5. Previous left hepatic lobectomy.
6. Moderate-sized paraesophageal hiatal hernia.
7. Mild small bowel distention most suggestive of ileus.
8. 8 cm segment of severe luminal narrowing in the sigmoid colon (possibly under distention of the colonic lumen).
9. Mild enlargement of the prostate gland.
10. Moderate elevation of the right hemidiaphragm.
Plan
Complicated UTI with left hydro ureteral nephrosis secondary to obstructing calculus.
Status post cystoscopy with left stent placement, large amount of high-pressure purulent debris released from kidney on 04/23.
switch ceftriaxone to cefdinir, urine culture no growth however patient had purulent debris during cystoscopy.
Outpatient urology follow-up
Initiated on Flomax
Acute kidney injury. Suspect in the settings of obstructive uropathy as well as Entresto
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
Creatinine on admission 2.8; Improving now 1.4
Restart Entresto
Chronic CHF reduced EF (LVEF 35 to 40% 09/17)
Volume status compensated
Preadmission GDMT including Entresto, metoprolol, Jardiance. 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
restart Entresto. Restart Jardiance when done with antibiotic
hydralazine prn for HTN
Neuropathy
Chronic pain requiring opiates.
Continue preadmission regimen including oxycodone/acetaminophen/gabapentin per
Anxiety
Continuing Xanax
Full code
DVT prophylaxis mechanical. Off heparin secondary to postprocedure hematuria
General: Well Developed and No Apparent Distress
HEENT: Normocephalic, Atraumatic and Moist Mucous Membranes
Respiratory: Clear to Auscultation
Cardiac: Regular Rhythm and S1/S2; Negative Murmur, Rub or Gallop
GI: Soft, Nontender, Nondistended and Normal Bowel Sounds
Musculoskeletal: No Edema
Neuro: Nonfocal/Grossly Intact
Anticipated Discharge: Today
Subjective/Interval History
-
Date of Service: April 25, 2025
Denies pain
Objective Data
-
Labs:
Laboratory Results
04/25/25
07:13
WBC 10.6
Hgb 14.2
Hct 42.5
Plt Count 145
Sodium 141
Potassium 4.3
Chloride 112 H
Carbon Dioxide 22
BUN 28 H
Creatinine 1.4 H
Glucose 83
Calcium 8.7
Vital Signs:
Vital Signs
Temp Pulse Resp BP Pulse Ox
98.1 F 70 18 149/92 96
04/25/25 07:25 04/25/25 07:25 04/25/25 07:25 04/25/25 07:25 04/25/25 07:25
I&O
04/24/25 04/25/25 04/26/25
06:59 06:59 06:59
Intake Total 1250 / 1250 2180 / 2180
Output Total 350 / 350
Balance 900 / 900 2180 / 2180
--- NOTE | 2025-04-25 11:51 | CM ---
Patient seen at bedside
PT eval completed-no needs
IMM explained & signed
PLAN: Home, no needs
to transport
[2025-04-25] MEDS: OMNICEF 300 MG PO (12:07)
[2025-04-25] MEDS: ENTRESTO 24 MG/26 MG 1 TAB PO (12:08)
[2025-04-25 12:13] VITALS: BP 152/96
--- NOTE | 2025-04-25 12:16 | W.DCSUMMARY ---
Discharge Summary
Discharge Data
Date of Admission: 04/22/25
Date of Discharge: 04/25/25
-
Pending Results: No
Hospital Course
79-year-old male with past medical history of colon cancer with hepatic mets status post partial colon resection, essential hypertension, neuropathy, anxiety, GERD, CHF came to the hospital with complicated urinary tract infection with infected
stone with hydronephrosis. Patient was seen by urology and was taken for cystoscopy with left stent placement. Per urology patient had large amount of high-pressure purulent debris. Patient was initially put on IV antibiotics. Culture did not
grow any bacteria however given purulent debris on cystoscopy patient was put on oral antibiotic to complete the course per urology recommendation. Once hospitalization patient also had acute kidney injury which continue to improve. Patient was
instructed to repeat BMP with primary care provider outpatient. On discharge patient was also instructed to follow-up with urology outpatient. Once his symptoms continue to improve, he was then discharged home with instructions to follow-up with
all his physicians outpatient.
Discharge Plan
-
Patient Disposition: Home (Routine Discharge)
Discharge Diagnosis/Procedures: Complicated UTI with infected stone s/p Cystoscopy, left retrograde pyelogram, stone
manipulation, stent placement.
J CARLOS
Diet: 2 Gram Sodium
Activity: As tolerated
Driving Restrictions: As prior to admission
Bathing Restrictions: None
Blood Work: BMP next week with primary care provider
Referrals:
Tomi Bang Jr., MD [Active, Urology] - in one week
UNKNOWN - PT DOES,NOT KNOW [Family Provider] - in less than 1 week
Prescriptions:
New
polyethylene glycol 3350 17 gram Powder In Packet
17 g PO DAILY Qty: 0 0RF
tamsulosin 0.4 mg Capsule
0.4 mg PO DAILY Qty: 30 0RF
phenazopyridine 100 mg Tablet
100 mg PO Q8 Qty: 15 0RF
cefdinir 300 mg Capsule
300 mg PO Q12 Qty: 8 0RF
Continued
gabapentin 300 MG capsule
600 mg PO BID
alprazolam [Xanax] 0.5 mg Tablet
0.5 mg PO DAILYPRN PRN (Reason: anxiety)
metoprolol succinate 50 mg Tablet Extended Release 24 Hr
50 mg PO DAILY Qty: 30 0RF
oxycodone-acetaminophen [Percocet] 10-325 mg Tablet
1 tab PO BID
docusate sodium [Colace] 100 mg Capsule
200 mg PO BID
sacubitril-valsartan [Entresto] 24-26 mg Tablet
1 tab PO BID
pantoprazole 40 mg tablet,delayed release (DR/EC)
40 mg PO DAILY
Held
Jardiance 10 mg Tablet
10 mg PO DAILY Qty: 30 0RF
Hold Instructions: restart when done with abx
Discharge Orders:
Discharge Patient (As Directed); Ordered 04/25/25
Ordered By: Tk Murrieta
Discharge Date and Time
Discharge Date/Time: 04/25/25 14:00
Print Language: GREENLANDIC
[2025-04-25] MEDS: FLUZONE HIGH-DOSE 2025-26 0.5 ML IM (13:11)
== END 2025-04-25 14:00 | disposition home or self-care (01) | DRG 660 ==
LOC: 3 WEST ACU 19:38
PROVIDERS: Physician Assistant; Registered Nurse; Specialist; Student in an Organized Health Care Education/Training Program; ADMITTING PHYSICIAN Internal Medicine; ATTENDING PHYSICIAN Internal Medicine; CONSULT PHYSICIAN Urology; EMERGENCY PHYSICIAN Emergency Medicine
PROC: 0T778DZ Dilation of Left Ureter with Intraluminal Device, Via Natural or Artificial Opening Endoscopic (ICD-10-PCS; 2025-04-23)
PROC: BT1F1ZZ Fluoroscopy of Left Kidney, Ureter and Bladder using Low Osmolar Contrast (ICD-10-PCS; 2025-04-23)
DX: N13.6 Pyonephrosis (principal); I13.0 Hypertensive heart and chronic kidney disease with heart failure and stage 1 through stage 4 chronic kidney disease, or unspecified chronic kidney disease; N13.8 Other obstructive and reflux uropathy; I50.22 Chronic systolic (congestive) heart failure; N17.9 Acute kidney failure, unspecified; D50.9 Iron deficiency anemia, unspecified; N18.31 Chronic kidney disease, stage 3a; F41.9 Anxiety disorder, unspecified; G62.9 Polyneuropathy, unspecified; D69.6 Thrombocytopenia, unspecified; E66.09 Other obesity due to excess calories; Z68.34 Body mass index [BMI] 34.0-34.9, adult; Z79.899 Other long term (current) drug therapy; Z90.49 Acquired absence of other specified parts of digestive tract; K21.9 Gastro-esophageal reflux disease without esophagitis; Z79.84 Long term (current) use of oral hypoglycemic drugs; Z92.21 Personal history of antineoplastic chemotherapy
CPT/HCPCS: 74018; 74176; 76000; 80048; 80053; 81003; 81015; 83605; 83690; 85025; 85027; 87086; 90662; 93005; 96361; 96374; 96376; 97162; 99285; C2617; G0008

== ENCOUNTER 2025-05-10 06:17 | Day surgery (SDC) | payer MEDICARE, SELFPAY ==
[2025-05-10] VITALS (8 sets, daily range): BP systolic 124–181; BP diastolic 78–113; BMI 34.9
[2025-05-10 08:05] LABS: Glucose - Point of Care 86 mg/dl (70-99)
[2025-05-10 08:19] LABS: Hematocrit 38.2 % (39.0-52.0); Hemoglobin 13.1 g/dL (13.0-18.0); Mean Corp Hgb Conc. 34.3 g/dL (33.0-37.0); Mean Corpuscular Volume 90.1 fL (80.0-94.0); Nucleated Red Blood Cells % 0 % (-); Platelet Count 174 10^3/uL (130-400); Red Cell Dist. Width 14.3 % (11.5-14.5)
--- NOTE | 2025-05-10 08:20 | PTCARENOTE ---
Patient c/o dizziness when ambulating to stretcher in pre-operative area this am. Dr. Weiss into see patient and patient reported left sided chest pain. Orders placed by Dr. Weiss. Vital signs, EKG, IV and laboratory studies completed and reported to
Dr. Weiss. Laboratory studies pending. At this time patient reported less chest pain but c/o of constipation and concerned he has not had a bowel movement since Tuesday. Dr. Bang to be made aware and will await laboratory studies. Nursing will
continue to monitor patient.
--- NOTE | 2025-05-10 08:20 | PTCARENOTE ---
Patient c/o dizziness when ambulating to stretcher when arrived in pre op room this am. Anesthesia into see patient and patient reported left sided chest pain to Dr. Weiss. Orders placed by Dr. Weiss. Vitals, EKG, IV and blood work obtained as
documented. EKG, Accu-check and Vital sign results given to Will await lab results.
[2025-05-10 09:06] LABS: Blood Urea Nitrogen 18 mg/dl (9-20); Calcium 9.0 mg/dl (8.4-10.2); Carbon Dioxide 23 mmol/L (22-30); Chloride 110 mmol/L (98-107); Estimated Creatinine Clearance 58 ml/min; Glucose 92 mg/dl (70-99); Potassium 3.8 mmol/L (3.5-5.1); Sodium 140 mmol/L (135-145); eGFR 55.53
--- NOTE | 2025-05-10 09:09 | PTCARENOTE ---
Dr. Bang over to see patient. Patient reported less chest pain at that time and denied shortness of breath. Lab studies still pending. Dr. Weiss also made aware that troponin still pending and all other lab studies resulted. No new orders at this
time.
[2025-05-10 09:17] LABS: Troponin I 0.019 ng/ml
[2025-05-10] MEDS: NORMOSOL-R/PLASMALYTE-A 1000 IV (09:17)
[2025-05-10] MEDS: FLOMAX 0.4 MG PO (11:43)
[2025-05-10] MEDS: MOTRIN 600 MG PO (13:04)
== END 2025-05-10 13:17 | disposition home or self-care (01) ==
LOC: SDS 06:17
PROVIDERS: Student in an Organized Health Care Education/Training Program; ATTENDING PHYSICIAN Specialist
DX: N20.2 Calculus of kidney with calculus of ureter (principal)
CPT/HCPCS: 52356; 74018; 76000; 80048; 82365; 82962; 84484; 85025; 87086; 93005; C1894; C2617